=== PATIENT | male | born 1995 ===

== ENCOUNTER 2020-12-31 16:49 | Emergency (ER) | payer MEDICAID, SELFPAY ==
[2020-12-31 17:47] VITALS: BP 149/84; PULSE 70; RESP 18; TEMP 36.9; O2SAT 99; BMI 31.9
--- NOTE | 2020-12-31 19:14 | ED.NAVMDI ---
HPI - Nausea/Vomiting/Diarrhea General Chief complaint: Nausea/Vomiting/Diarrhea Stated complaint: Vomiting Time Seen by Provider: 12/31/20 18:59 History of Present Illness HPI Narrative: Patient is 25-year-old male presents today with having nausea vomiting diarrhea. Positive generalized malaise. Symptoms been ongoing for approximately 1 week. Patient denies any recent travel. Receive his coronavirus vaccine. No cough and no congestion or upper respiratory symptoms. No change in smell or taste. Patient's diarrhea is yellow in color there is no blood. Denies any recent antibiotics. No recent camping. Nausea vomiting mostly food. Patient from home. No abdominal surgery in the past. Minimal abdominal pain as diffuse more in the upper abdomen. Related Data Previous Rx's Medication Instructions Recorded ondansetron 4 mg disintegrating 4 mg PO TID PRN 5 Days #10 tab 12/31/20 tablet Allergies Allergy/AdvReac Type Severity Reaction Status Date / Time No Known Allergies Allergy Unverified 10/29/19 16:37 Review of Systems Review of Systems: Positive nausea Positive diarrhea Positive vomiting No cough and congestion upper respiratory symptoms Yes all other systems are reviewed and are negative [facility] Past Medical History Attestation statement: The following information was validated with the patient. Social History Social History Advance Directives: No Advance Directives Information Provided: Yes Physical Exam Vital Signs: Vital Signs: Last Vital Signs Temp 98.4 F 12/31/20 17:47 Pulse 70 12/31/20 17:47 Resp 18 12/31/20 17:47 BP 149/84 H 12/31/20 17:47 Pulse Ox 99 12/31/20 17:47 Body Mass Index 31.9 Appearance: Alert. Oriented X3. No acute distress. Eyes: Pupils equal, round and reactive to light. ENT: Pharynx normal. Neck: Normal inspection. Neck supple. No lymph nodes noted. No crepitus CVS: Normal heart rate and rhythm. Pulses normal. Normal S1 and S2 Respiratory: No respiratory distress. Breath sounds normal. No Wheezing. No rales Abdomen: Soft and nontender. No rigidity. No distention. good BS x4 Skin: Skin warm and dry. Normal skin color. Normal skin turgor. Extremities: No lower extremity edema. Neurovascular intact to all extremities. No Lacerations. No Rash Neuro: Oriented X 3. No motor deficit. No sensory deficit. Moving all extermities. No slurred speech MDM - Nausea/Vomiting/Diarrhea MDM Narrative Medical decision making narrative: Patient well appearing no acute distress. Tolerated p.o. in the emergency department after IV fluids. Will give Zofran for nausea. Repeat exam is soft nontender. Patient in stable condition with discharge home Medical Records Attestation: I reviewed the patient's medical records. Lab Data Attestation: I reviewed the patient's lab results. Result diagrams: 12/31/20 19:20 12/31/20 19:20 Labs: Lab Results 12/31/20 12/31/20 Range/Units 19:20 19:20 WBC 7.3 (4.8-10.8) X10*3/uL RBC 5.63 (4.60-5.80) X10*6/uL Hgb 16.7 (14.0-18.0) g/dl Hct 48.2 (42.0-52.0) % MCV 85.6 (80.0-98.0) fL MCH 29.7 (27.0-33.0) pg MCHC 34.6 (31.0-36.0) g/dl RDW 12.6 (11.0-16.0) % Plt Count 322 (160-400) X10*3/uL MPV 9.8 (9.4-12.4) fL Immature Gran % (Auto) 0.1 (0.0-0.4) % Neut % (Auto) 72.7 (45-73) % Lymph % (Auto) 19.5 L (20-40) % [place] % (Auto) 7.2 (2-11) % Eos % (Auto) 0.1 (0-4) % Baso % (Auto) 0.4 (0-2) % Lymph # (Auto) 1.4 (1.2-4.9) X10*3/uL [place] # (Auto) 0.5 (0.1-1.2) X10*3/uL Eos # (Auto) 0.0 (0.0-0.4) X10*3/uL Baso # (Auto) 0.0 (0.0-0.2) X10*3/uL Abs Immat Gran (auto) 0.01 (0.00-0.03) X10*3/uL Absolute Neuts (auto) 5.3 (2.0-8.3) x10*3/uL Absolute Nucleated RBC 0.000 (0.0-0.012) X10*3/uL Nucleated RBC % (auto) 0.0 (0.0-0.2) /100WBC Sodium 142 (135-145) mmol/L Potassium 3.6 (3.3-5.1) mmol/L Chloride 105 (96-108) mmol/L Carbon Dioxide 27 (22-29) mmol/L Anion Gap 14 (12-20) BUN 6 L (9-16) mg/dL Creatinine 0.83 (0.5-1.4) mg/dL Estim Creat Clear Calc 154.9 Estimated GFR > 60 Random Glucose 91 (60-115) mg/dL Calcium 10.0 (8.4-10.2) mg/dL Total Bilirubin 0.9 (0.0-1.0) mg/dL Direct Bilirubin 0.4 (0.0-0.5) mg/dL AST 21 (5-37) U/L ALT 26 (0-40) U/L Alkaline Phosphatase 97 (39-117) U/L Total Protein 8.2 H (6.5-8.0) g/dL Albumin 5.0 (3.5-5.0) g/dL Lipase 12 (8-78) U/L Discharge Plan Discharge Clinical Impression: Gastroenteritis Patient Disposition: Home, Self-Care Instructions: Acute Nausea and Vomiting (ED), Acute Diarrhea (ED) Prescriptions: New ondansetron 4 mg tablet,disintegrating 4 mg PO TID PRN (Reason: nausea and vomiting) 5 Days Qty: 10 RF: 0 Referrals: [facility] [Primary Care Provider] - 2 days
[2020-12-31 19:23] LABS: MANUAL DIFF FLAG NO
[2020-12-31 19:24] LABS: Basophils Percent Auto 0.4 % (0-2); Eosinophils Percent Auto 0.1 % (0-4); Hematocrit 48.2 % (42.0-52.0); Hemoglobin 16.7 g/dl (14.0-18.0); Imm Gran Abs Auto 0.01 X10*3/uL (0.00-0.03); Imm Gran Pct Auto 0.1 % (0.0-0.4); Lymphocytes Absolute Auto 1.4 X10*3/uL (1.2-4.9); Lymphocytes Percent Auto 19.5 % (20-40); Mean Corpuscular HGB Conc 34.6 g/dl (31.0-36.0); Mean Corpuscular Hemoglobin 29.7 pg (27.0-33.0); Mean Corpuscular Volume 85.6 fL (80.0-98.0); Mean Platelet Volume 9.8 fL (9.4-12.4); Monocytes Absolute Auto 0.5 X10*3/uL (0.1-1.2); Monocytes Percent Auto 7.2 % (2-11); Neutrophils Absolute Auto 5.3 x10*3/uL (2.0-8.3); Neutrophils Percent Auto 72.7 % (45-73); Platelet Count 322 X10*3/uL (160-400); Red Blood Count 5.63 X10*6/uL (4.60-5.80); Red Cell Distribution Width 12.6 % (11.0-16.0); White Blood Count 7.3 X10*3/uL (4.8-10.8)
[2020-12-31 19:41] LABS: Alanine Aminotransferase 26 U/L (0-40); Alkaline Phosphatase 97 U/L (39-117); Anion Gap 14 (12-20); Aspartate Amino Transferase 21 U/L (5-37); Bilirubin Direct 0.4 mg/dL (0.0-0.5); Bilirubin Total 0.9 mg/dL (0.0-1.0); Blood Urea Nitrogen 6 mg/dL (9-16); Carbon Dioxide 27 mmol/L (22-29); Chloride 105 mmol/L (96-108); Creatinine Clr Calc Pharmacy 154.9; Estimated Glomerular Filt Rate > 60; Glucose Random 91 mg/dL (60-115); Lipase 12 U/L (8-78); Potassium 3.6 mmol/L (3.3-5.1); Sodium 142 mmol/L (135-145); Total Protein 8.2 g/dL (6.5-8.0)
[2020-12-31] MEDS: ondansetron HCL 4 MG/2 ML VIAL IVPUSH (19:58)
[2020-12-31] MEDS: 0.9 % Sodium Chloride 1,000 ML 999 ML IV (19:58)
[2020-12-31 21:29] LABS: Appearance Urine CLEAR; Color Urine YELLOW; Glucose Urine UA NEG (NEG); Leukocyte Esterase Urine NEG (NEG); Nitrite Urine NEG (NEG); Specific Gravity - Urine 1.015 (1.005-1.025); Urine Blood NEG (NEG); Urine Ketones >=80 MG/DL (NEG); Urine Protein NEG (NEG-TRACE)
== END 2020-12-31 21:32 | disposition home or self-care (01) ==
PROVIDERS: Emergency Provider Emergency Medicine Emergency Medical Services
DX: K52.9 Noninfective gastroenteritis and colitis, unspecified (principal)
CPT/HCPCS: 36415; 80048; 80076; 81003; 83690; 85025; 96361; 96374; 99284; J2405

== ENCOUNTER 2022-10-06 19:51 | Observation (INO) | payer MEDICAID, SELFPAY ==
--- NOTE | 2022-10-06 | ECG_ITS ---
Test Reason : ELEVATED TROPONIN Blood Pressure : / mmHG Vent. Rate : 073 BPM Atrial Rate : 073 BPM P-R Int : 130 ms QRS Dur : 114 ms QT Int : 388 ms P-R-T Axes : 046 037 013 degrees QTc Int : 427 ms Normal sinus rhythm Incomplete right bundle branch block Borderline ECG When compared with ECG of 06-OCT-2022 20:23, No significant change was found Referred By: Tea Abel Electronically Signed By:OFELIA CHRISTINA
--- NOTE | ~2022-10-06 | XR_ITS ---
EXAMINATION: XR CHEST CLINICAL INFORMATION: Status post CPR. COMPARISON: None available. TECHNIQUE: Frontal view of the chest was obtained. FINDINGS: Normal appearance of the cardiomediastinal silhouette. No focal airspace opacity, pleural effusion or pneumothorax. No displaced osseous fractures. XR/XR chest 1V IMPRESSION: No acute cardiopulmonary findings. No displaced osseous fractures.
[2022-10-06 20:11] VITALS: BP 133/92; PULSE 101; RESP 18; TEMP 36.9; O2SAT 98; BMI 28.1
--- NOTE | 2022-10-06 20:11 | ED.SYNCOPE ---
HPI - Syncope General Chief Complaint: Syncope Stated Complaint: syncope, nausea Time Seen by Provider: 10/06/22 21:58 Source: patient Mode of arrival: ambulatory Limitations: no limitations History of Present Illness HPI narrative: Patient comes to the emergency room accompanied by his significant other. Today, patient states that he was smoking marijuana and swallow a tablet of what he thought to be Percocet. Patient states he did because appear pressure, denies SI or HI. Patient states that he accidentally overdosed. Patient's friend who was at his side , noted that the patient was unresponsive, threw the patient on the floor, started doing chest compressions and [id number] respirations. Patient remembers waking up very groggy, he was able to walk himself to a bathtub and his friend threw cold water on him. Patient states he has very minimal chest discomfort from the chest compressions Related Data Previous Rx's Medication Instructions Recorded ondansetron 4 mg disintegrating 4 mg PO TID PRN nausea and 12/31/20 tablet vomiting 5 days #10 tabs Allergies Allergy/AdvReac Type Severity Reaction Status Date / Time No Known Allergies Allergy Verified 10/06/22 20:18 Review of Systems Review of Systems: Constitutional : No Weight loss, No Fever, No Chills, No Night Sweats, No Fatigue, No Malaise ENT/Mouth : No Hearing loss, No Ear Pain, No Nasal Congestion, No Sinus Pain, No Hoarseness, No sore throat, No Rhinorrhea, No Swallowing Difficulty Eyes: No Eye Pain, No Swelling, No Redness, No Foreign Body, No Discharge, No Vision Changes Cardiovascular : No Chest Pain, No SOB, No Dyspnea on Exertion, No Orthopnea, No Edema, No Palpitations Respiratory : No Cough, No Sputum, No Wheezing, No Smoke Exposure, No Dyspnea Gastrointestinal : No Nausea, No Vomiting, No Diarrhea, No Constipation, No abdominal Pain, No Hematochezia, No Melena Genitourinary : no irregular bleeding, No Dysuria, No Urinary Frequency, No Hematuria, No Urinary Incontinence, No Urgency, No Flank Pain, No Urinary Flow Changes, No Hesitancy Musculoskeletal : No joint pain, No Myalgias, No Joint Swelling Skin : No Skin Lesions, No rash Neuro : No Weakness, No Numbness, No Paresthesias, No Loss of Consciousness, No Dizziness, No Headache Psych : No Anxiety/Panic, No Depression, No SI/HI/AH/VH, admits to using opiates and synthetic marijuana Heme/Lymph: No Bruising, No Bleeding,No Lymphadenopathy Endocrine : No Polyuria, No Polydipsia, No Temperature Intolerance PMF Past Medical History Medical History (Updated 10/06/22 @ 23:53 by Tea Abel MD) Polysubstance abuse Social History Social History Alcohol intake: never Smoked in Last 30 Days: No Use of substances other than those prescribed or required for medical reasons: Yes Substance Use Type: Marijuana and Opiates Advance Directives: No Advance Directives Information Provided: Yes Physical Exam Vital Signs: Vital Signs: Last Vital Signs Temp 98.5 F 10/06/22 20:11 Pulse 101 H 10/06/22 20:11 Resp 18 10/06/22 20:11 BP 133/92 H 10/06/22 20:11 Pulse Ox 98 10/06/22 20:11 O2 Del Method Room Air 10/06/22 20:11 BMI result Body Mass Index 28.1 Const: Other: Appearance: Alert. Oriented X3. No acute distress. Eyes: Pupils equal, round and reactive to light. ENT: Pharynx normal. Neck: Normal inspection. Neck supple. No lymph nodes noted. No crepitus CVS: Normal heart rate and rhythm. Pulses normal. Normal S1 and S2 Respiratory: No respiratory distress. Breath sounds normal. No Wheezing. No rales Abdomen: Soft and nontender. No rigidity. No distention. Skin: Skin warm and dry. Normal skin color. Normal skin turgor. Extremities: No lower extremity edema. No Lacerations. No Rash Neuro: Oriented X 3. No motor deficit. No sensory deficit. Moving all extremities. No slurred speech. CN 2 through 12 grossly intact Psych: calm, cooperative, normal affect Course Course Course Narrative: This is an RME: Additional HPI, ROS, PE not included below will be deferred to primary provider. Patient is a 27-year-old male who presents emergency department for evaluation after a syncopal episode. He states that he was smoking marijuana, began feeling really hot, and reportedly syncopized per his friend. The next thing patient recalls his friend was picking him up from the floor, reportedly the friend assisted him to lay on the floor as he thought he may have been choking? He is having nausea, diffuse headache, dizziness. Patient later admits to his friend pressuring him into taking a Percocet, reportedly by mouth Plan: labs, EKG, GALICIA Medical Decision Making Medical Decision Making [facility] Narrative: -patient likely accidentally overdose with narcotics, urine tested positive for fentanyl and THC -chest x-ray pending -troponin 1. Was elevated 35.4 , likely secondary to CPR, troponin 2. Pending at 23:30 -at this time, 22:30, patient is asymptomatic. Awake and alert, oxygen saturation 98% on room air -troponin 2. Is 100.2 which is more than double. I discussed the patient in lab findings with Dr. Finney, patient will be admitted under observation status, troponin to be repeated in the morning. Patient was given full-dose aspirin -patient remains chest pain-free -I discussed the patient with Dr. Howard, patient being admitted under observation Differential Diagnosis Differential Diagnoses: The differential diagnosis associated with the presentation includes (Coronary spasm, ACS, STEMI, NSTEMI) Admission/Observation Consideration of admission/observation: Escalation of care including admission/observation considered Consult Healthcare Provider Management of the patient was discussed with: Hospitalist and Agricultural Education Instructor Lab Data [facility] Lab Attestation statement: I reviewed the patient's lab results. 10/06/22 20:33 10/06/22 20:33 Labs: Lab Results 10/06/22 10/06/22 10/06/22 Range/Units 20:33 20:33 20:33 WBC 9.2 (4.8-10.8) X10*3/uL RBC 5.53 (4.60-5.80) X10*6/uL Hgb 16.0 (14.0-18.0) g/dl Hct 47.4 (42.0-52.0) % MCV 85.7 (80.0-98.0) fL MCH 28.9 (27.0-33.0) pg MCHC 33.8 (31.0-36.0) g/dl RDW 12.1 (11.0-16.0) % Plt Count 329 (160-400) X10*3/uL MPV 9.8 (9.4-12.4) fL Immature Gran % (Auto) 0.2 (0.0-0.4) % Neut % (Auto) 77.3 H (45-73) % Lymph % (Auto) 13.9 L (20-40) % [place] % (Auto) 8.1 (2-11) % Eos % (Auto) 0.1 (0-4) % Baso % (Auto) 0.4 (0-2) % Lymph # (Auto) 1.3 (1.2-4.9) X10*3/uL [place] # (Auto) 0.8 (0.1-1.2) X10*3/uL Eos # (Auto) 0.0 (0.0-0.4) X10*3/uL Baso # (Auto) 0.0 (0.0-0.2) X10*3/uL Abs Immat Gran (auto) 0.02 (0.00-0.03) X10*3/uL Absolute Neuts (auto) 7.1 (2.0-8.3) x10*3/uL Absolute Nucleated RBC 0.000 (0.0-0.012) X10*3/uL Nucleated RBC % (auto) 0.0 (0.0-0.2) /100WBC Sodium 143 (135-145) mmol/L Potassium 3.4 (3.3-5.1) mmol/L Chloride 103 (96-108) mmol/L Carbon Dioxide 29 (22-29) mmol/L Anion Gap 14 (12-20) BUN 8 L (9-16) mg/dL Creatinine 1.03 (0.5-1.4) mg/dL Estim Creat Clear Calc 115.6 Estimated GFR > 60 Random Glucose 137 H (60-115) mg/dL Calcium 9.9 (8.4-10.2) mg/dL Total Bilirubin 0.6 (0.0-1.0) mg/dL AST 22 (5-37) U/L ALT 13 (0-40) U/L Alkaline Phosphatase 95 (39-117) U/L Troponin I High Sens 35.4 H (<3.5-35.0) ng/L Total Protein 8.2 H (6.5-8.0) g/dL Albumin 5.0 (3.5-5.0) g/dL Urine Opiates Screen (Not Detect) Urine Fentanyl Screen (Not Detect) Ur Barbiturates Screen (Not Detect) Ur Phencyclidine Scrn (Not Detect) Ur Amphetamines Screen (Not Detect) U Benzodiazepines Scrn (Not Detect) Urine Cocaine Screen (Not Detect) U Marijuana (THC) Screen (Not Detect) 10/06/22 10/06/22 Range/Units 20:33 22:50 WBC (4.8-10.8) X10*3/uL RBC (4.60-5.80) X10*6/uL Hgb (14.0-18.0) g/dl Hct (42.0-52.0) % MCV (80.0-98.0) fL MCH (27.0-33.0) pg MCHC (31.0-36.0) g/dl RDW (11.0-16.0) % Plt Count (160-400) X10*3/uL MPV (9.4-12.4) fL Immature Gran % (Auto) (0.0-0.4) % Neut % (Auto) (45-73) % Lymph % (Auto) (20-40) % [place] % (Auto) (2-11) % Eos % (Auto) (0-4) % Baso % (Auto) (0-2) % Lymph # (Auto) (1.2-4.9) X10*3/uL [place] # (Auto) (0.1-1.2) X10*3/uL Eos # (Auto) (0.0-0.4) X10*3/uL Baso # (Auto) (0.0-0.2) X10*3/uL Abs Immat Gran (auto) (0.00-0.03) X10*3/uL Absolute Neuts (auto) (2.0-8.3) x10*3/uL Absolute Nucleated RBC (0.0-0.012) X10*3/uL Nucleated RBC % (auto) (0.0-0.2) /100WBC Sodium (135-145) mmol/L Potassium (3.3-5.1) mmol/L Chloride (96-108) mmol/L Carbon Dioxide (22-29) mmol/L Anion Gap (12-20) BUN (9-16) mg/dL Creatinine (0.5-1.4) mg/dL Estim Creat Clear Calc Estimated GFR Random Glucose (60-115) mg/dL Calcium (8.4-10.2) mg/dL Total Bilirubin (0.0-1.0) mg/dL AST (5-37) U/L ALT (0-40) U/L Alkaline Phosphatase (39-117) U/L Troponin I High Sens 100.2 H* D (<3.5-35.0) ng/L Total Protein (6.5-8.0) g/dL Albumin (3.5-5.0) g/dL Urine Opiates Screen Not Detected (Not Detect) Urine Fentanyl Screen POSITIVE H (Not Detect) Ur Barbiturates Screen Not Detected (Not Detect) Ur Phencyclidine Scrn Not Detected (Not Detect) Ur Amphetamines Screen Not Detected (Not Detect) U Benzodiazepines Scrn Not Detected (Not Detect) Urine Cocaine Screen Not Detected (Not Detect) U Marijuana (THC) Screen POSITIVE H (Not Detect) Independent Interpretation I performed an independent interpretation of an: EKG (EKG 1. Right interpretation: Normal sinus rhythm, heart rate 91, [address] segment depression in lead 3, no reciprocal changes, right bundle-branch block, QTC 457. EKG 2.: Normal sinus rhythm, incomplete right bundle branch block, nonspecific T-wave inversions in lead 3, QTC 427 ) Radiology Impression Discussion of test interpretation with radiology: I have reviewed the radiologist's reading. (Normal appearance of the cardiomediastinal silhouette. No focal airspace opacity, pleural effusion or pneumothorax. No displaced osseous fractures. IMPRESSION: No acute cardiopulmonary findings. No displaced osseous fractures.) Independent Historian Clinical information obtained from an independent historian. History obtained from or confirmed by: Spouse External Record Review External record reviewed: Prior outpatient labs Chronic Conditions Patient?s care impacted by: Other (Polysubstance abuse) Critical Care Time Critical Care Time Critical Care Time: Yes Total Critical Care Time: 60 Attestation: I have personally provided critical care time. Time includes review of lab data, radiology results, discussion with consultants, and monitoring for potential decompensation. Intervention performed as documented. Discharge Plan Discharge Clinical Impression: Elevated troponin, Polysubstance abuse Patient Disposition: Admitted as Observation Prescriptions: No Action ondansetron 4 mg tablet,disintegrating 4 mg PO TID PRN (Reason: nausea and vomiting) 5 Days Qty: 10 0RF
--- NOTE | 2022-10-06 20:17 | ECG_ITS ---
Test Reason : SYNCOPE Blood Pressure : / mmHG Vent. Rate : 091 BPM Atrial Rate : 091 BPM P-R Int : 130 ms QRS Dur : 116 ms QT Int : 372 ms P-R-T Axes : 062 002 027 degrees QTc Int : 457 ms Normal sinus rhythm Incomplete right bundle branch block Borderline ECG No previous ECGs available Referred By: Shana Webber Electronically Signed By:OFELIA CHRISTINA
[2022-10-06 20:38] LABS: MANUAL DIFF FLAG NO
[2022-10-06 20:51] LABS: Basophils Percent Auto 0.4 % (0-2); Eosinophils Percent Auto 0.1 % (0-4); Hematocrit 47.4 % (42.0-52.0); Imm Gran Abs Auto 0.02 X10*3/uL (0.00-0.03); Imm Gran Pct Auto 0.2 % (0.0-0.4); Lymphocytes Absolute Auto 1.3 X10*3/uL (1.2-4.9); Lymphocytes Percent Auto 13.9 % (20-40); Mean Corpuscular HGB Conc 33.8 g/dl (31.0-36.0); Mean Corpuscular Hemoglobin 28.9 pg (27.0-33.0); Mean Corpuscular Volume 85.7 fL (80.0-98.0); Mean Platelet Volume 9.8 fL (9.4-12.4); Monocytes Absolute Auto 0.8 X10*3/uL (0.1-1.2); Monocytes Percent Auto 8.1 % (2-11); Neutrophils Absolute Auto 7.1 x10*3/uL (2.0-8.3); Neutrophils Percent Auto 77.3 % (45-73); Platelet Count 329 X10*3/uL (160-400); Red Blood Count 5.53 X10*6/uL (4.60-5.80); Red Cell Distribution Width 12.1 % (11.0-16.0); White Blood Count 9.2 X10*3/uL (4.8-10.8)
[2022-10-06 20:52] LABS: Alanine Aminotransferase 13 U/L (0-40); Alkaline Phosphatase 95 U/L (39-117); Anion Gap 14 (12-20); Aspartate Amino Transferase 22 U/L (5-37); Bilirubin Total 0.6 mg/dL (0.0-1.0); Blood Urea Nitrogen 8 mg/dL (9-16); Calcium 9.9 mg/dL (8.4-10.2); Carbon Dioxide 29 mmol/L (22-29); Chloride 103 mmol/L (96-108); Creatinine Clr Calc Pharmacy 115.6; Estimated Glomerular Filt Rate > 60; Glucose Random 137 mg/dL (60-115); Potassium 3.4 mmol/L (3.3-5.1); Sodium 143 mmol/L (135-145); Total Protein 8.2 g/dL (6.5-8.0)
[2022-10-06 20:53] LABS: Amphetamine Screen Urine Not Detected (Not Detect); Barbiturates, Urine Not Detected (Not Detect); Benzodiazepines Screen Urine Not Detected (Not Detect); Cannabinoid Screen Urine POSITIVE (Not Detect); Cocaine Screen Urine Not Detected (Not Detect); Fentanyl, urine POSITIVE (Not Detect); Opiate Screen Urine Not Detected (Not Detect); Phencyclidine Screen Urine Not Detected (Not Detect)
[2022-10-06 20:59] LABS: Troponin-I High Sensitivity 35.4 ng/L (<3.5-35.0)
[2022-10-06 22:24] VITALS: PULSE 72
--- NOTE | 2022-10-06 22:28 | PC.NURSE ---
Pt a&ox3, Pt reports headache 5/10 pain. Pt reports that he vomited in the waiting room, and is expiriencing heartburn. Denies N/V/D sima. Pt reports smoking marijuana and taking a percocet around the time of syncopal episode. Pt states he tried to use cold water min the bathtub after passing out. Pt resting quietly, with no apparent distress at this time.
[2022-10-06 23:16] LABS: Troponin-I High Sensitivity 100.2 ng/L (<3.5-35.0)
--- NOTE | 2022-10-06 23:50 | PM.IMHP ---
History of Present Illness Date of Service: 10/06/22 Chief Complaint: Overdose 27-year-old male with no significant past medical history is brought into the hospital after having an overdose episode. Patient is alert oriented x3. He tells me that he accidentally overdose on fentanyl. Patient's friend who was at his side noted that patient became unresponsive, through the patient on the floor and started doing chest compressions and mass to mouth resuscitation. He woke up feeling very groggy, was able to walk himself to the back to open his friend through cold water on him. He then came to the ED for further evaluation. He reports a S some heartburn in the throat but otherwise has no chest pain, no shortness of breath, no abdominal pain nausea or vomiting, no diarrhea constipation, no urinary symptoms, no headache or change in vision, no weakness numbness or tingling. On arrival to the ED patient hemodynamically stable Labs are significant for WBC count of 9.2, labs otherwise unremarkable except for troponin of 35 increased 100.2 Incomplete right bundle branch block, otherwise no significant abnormality - this was discussed with Cardiology, given the increase in troponin patient will be admitted for observation Review of Systems Review of Systems: Yes all other systems are reviewed and are negative [facility] Medical History Polysubstance abuse Surgical History No pertinent past surgical history Social History Alcohol intake: never Patient Tobacco Use Status: Refuse Tobacco use screen Smoked in Last 30 Days: No Use of substances other than those prescribed or required for medical reasons: Yes Substance Use Type: Marijuana and Opiates Advance Directives: No Advance Directives Information Provided: Yes Nutrition Risks: No Nutritional Risk Meds Allergies Allergy/AdvReac Type Severity Reaction Status Date / Time No Known Allergies Allergy Verified 10/06/22 20:18 Physical Exam Vital Signs and Narrative: Vital Signs: Last Vital Signs Temp 98.5 F 10/06/22 20:11 Pulse 101 H 10/06/22 20:11 Resp 18 10/06/22 20:11 BP 133/92 H 10/06/22 20:11 Pulse Ox 98 10/06/22 20:11 O2 Del Method Room Air 10/06/22 20:11 BMI result Body Mass Index 28.1 Const: General: cooperative and no acute distress Orientation/consciousness: patient oriented x3 Eyes: General: appearance normal, both eyes and all related structures Pupils: Equal, round and reactive pupils present Resp: Effort & Inspection: normal respiratory effort Auscultation: clear to auscultation bilaterally Cardio: Rate: regular rate Rhythm: regular rhythm GI: Palpation (GI): Soft to palpation Auscultation: normal bowel sounds Skin: General skin exam: no rashes or lesions noted Neuro: General: patient oriented x3 Cranial nerves: Yes Equal, round and reactive pupils present Cognition (Neuro): normal cognition Extrem: General: Yes normal to inspection and Yes no pedal edema Results Labs 10/06/22 20:33 10/06/22 20:33 Labs: Laboratory Results - last 24 hr 10/06/22 10/06/22 10/06/22 20:33 20:33 20:33 MCV 85.7 MCH 28.9 MCHC 33.8 RDW 12.1 Plt Count 329 MPV 9.8 Immature Gran % (Auto) 0.2 Neut % (Auto) 77.3 H Lymph % (Auto) 13.9 L [place] % (Auto) 8.1 Eos % (Auto) 0.1 Baso % (Auto) 0.4 Lymph # (Auto) 1.3 [place] # (Auto) 0.8 Eos # (Auto) 0.0 Baso # (Auto) 0.0 Abs Immat Gran (auto) 0.02 Absolute Neuts (auto) 7.1 Absolute Nucleated RBC 0.000 Nucleated RBC % (auto) 0.0 Anion Gap 14 Estim Creat Clear Calc 115.6 Estimated GFR > 60 Random Glucose 137 H Calcium 9.9 Total Bilirubin 0.6 AST 22 ALT 13 Alkaline Phosphatase 95 Total Protein 8.2 H Albumin 5.0 Urine Opiates Screen Not Detected Urine Fentanyl Screen POSITIVE H Ur Barbiturates Screen Not Detected Ur Phencyclidine Scrn Not Detected Ur Amphetamines Screen Not Detected U Benzodiazepines Scrn Not Detected Urine Cocaine Screen Not Detected U Marijuana (THC) Screen POSITIVE H Imaging Radiologist's Impressions: Impressions Chest X-Ray 10/06/22 22:37 IMPRESSION: No acute cardiopulmonary findings. No displaced osseous fractures. Assessment and Plan (1) Elevated troponin: Status: Acute (2) Opioid overdose: Status: Acute Plan 27-year-old male with no significant past medical history comes into the hospital after overdosing on fentanyl accidentally, found to have elevated troponin # elevated troponin - likely from this chest compressions/CPR attempted - this was discussed with Cardiology, patient will be admitted for observation. - patient will be admitted to telemetry, repeat troponin in 4 hours, if decreased patient can be discharged # opioid overdose - per patient, accidental -addiction medicine consult Time Spent With Patient Time: Total time managing care of this patient today ____ minutes. Quality Stroke Does the patient have a stroke diagnosis?: No VTE Prior VTE?: No VTE Risk Level:: Medical - low VTE Device Contraindication: Treatment Not Indicated VTE Drug Contraindication: Treatment Not Indicated
[2022-10-07] VITALS: BP 138/71; PULSE 69; RESP 13; TEMP 37.4; O2SAT 98
--- NOTE | 2022-10-07 | ECG_ITS ---
Test Reason : Abnormal Initial Tracing Blood Pressure : / mmHG Vent. Rate : 061 BPM Atrial Rate : 061 BPM P-R Int : 136 ms QRS Dur : 116 ms QT Int : 424 ms P-R-T Axes : 044 012 009 degrees QTc Int : 426 ms Normal sinus rhythm Incomplete right bundle branch block Borderline ECG When compared with ECG of 06-OCT-2022 23:29, No significant change was found Referred By: Ishmael Urbano Electronically Signed By:OFELIA CHRISTINA
[2022-10-07] MEDS: Aspirin Enteric Coated 325 MG TABLET.DR PO (00:24)
[2022-10-07] MEDS: 0.9 % Sodium Chloride Flush 3 ML SYRINGE IVFLUSH ×2 (00:25→07:17)
[2022-10-07 01:48] VITALS: O2SAT 98
[2022-10-07 03:30] LABS: Troponin-I High Sensitivity 60.6 ng/L (<3.5-35.0)
[2022-10-07 05:25] VITALS: BP 113/63; PULSE 60; RESP 17; TEMP 37; O2SAT 98
[2022-10-07 06:04] LABS: Alanine Aminotransferase 12 U/L (0-40); Albumin Level 4.4 g/dL (3.5-5.0); Alkaline Phosphatase 78 U/L (39-117); Anion Gap 13 (12-20); Aspartate Amino Transferase 19 U/L (5-37); Bilirubin Total 0.6 mg/dL (0.0-1.0); Blood Urea Nitrogen 6 mg/dL (9-16); Calcium 9.6 mg/dL (8.4-10.2); Carbon Dioxide 28 mmol/L (22-29); Chloride 105 mmol/L (96-108); Creatinine Clr Calc Pharmacy 154.6; Estimated Glomerular Filt Rate > 60; Glucose Random 92 mg/dL (60-115); Potassium 3.6 mmol/L (3.3-5.1); Sodium 142 mmol/L (135-145); Total Protein 7.2 g/dL (6.5-8.0)
[2022-10-07 06:08] LABS: Troponin-I High Sensitivity 42.2 ng/L (<3.5-35.0)
--- NOTE | 2022-10-07 06:46 | MHC.EDTECH ---
PATIENT IS CHANGING OVER TO HOSPITAL ATTIRE ALL ITEMS ARE LOCKED IN THE BEHAVIORAL POD LOCKER 9
--- NOTE | 2022-10-07 07:03 | PHA.MEDREC ---
Pharmacy Consult ? Medication Reconciliation Pharmacy has completed the medication reconciliation.
--- NOTE | 2022-10-07 07:16 | PC.NURSE ---
Alert and oriented, denies pain or discomfort. oob ambulating in room. Changed into hospital attire.
[2022-10-07 08:58] VITALS: BP 134/73; PULSE 83; RESP 12; TEMP 37.4; O2SAT 99
--- NOTE | 2022-10-07 09:01 | HO.SUDE ---
Addendum entered by Casandra Amador RN 10/07/22 09:30: Pt reports age of first use 17-18 years old, pt states period of recovery 3 years, while living in [place]. Pt states recurrence, approximately 2 years ago. Pt denies increased cravings. Original Note: This communications writer met with patient after addiction consult received. Pt admitted for elevated troponin, opiate overdose. Pt was resting in bed, alert, oriented. 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 Pt reports, became unconscious, friend provided CPR and splashed pt with cold water until alert. Pt reports after the overdose, presented to the ED. Pt states uses pressed pills 1-2 x's per week, pt reports no other substances used. Pt states never uses alone, uses with friend. Pt reports no hx of overdose. Pt states goal of abstinence, motivation to stop is patients family. Pt states occasionally experiences hot, cold sweats on the days not using pressed pills. Pt reports has cravings to use pressed pills, only when around it. Pt denies cravings to use pressed pills when not around it. Pt states interested in Suboxone medication for cravings. Harm reduction, medications for opiate use reviewed, recovery supports reviewed. Pt has PCP at [facility], discussed pt accessing [facility]. Pt interested in starting Suboxone. Pt agreeable to take home narcan, reviewed how to use narcan. Pt verbalized understanding. Pt encouraged to reach out to Addiction/Recovery team with any questions and concerns, contact info provided. Pt reports no other questions at this time.
[2022-10-07] MEDS: Buprenorphine/Naloxone 2/0.5mg FILM 1 FILM SUBLINGUAL (09:49)
--- NOTE | 2022-10-07 10:55 | PM.DS ---
DS: Providers Provider Date of Service: 10/07/22 Date of admission: 10/06/22 23:48 Date of discharge: 10/07/22 Primary care physician: [facility] Consults: 10/07/22 06:34 Addiction Medicine Routine Consulting Provider: Narinder Boston Reason for consultation: Opioid overdose Has provider been notified: No DS: Diagnosis Discharge Diagnosis (1) Opioid overdose: Status: Acute (2) Elevated troponin: Status: Acute DS: Summary Hospital Course Hospital Course: 27-year-old male with no significant past medical history is brought into the hospital after having an overdose episode.? Patient is alert oriented x3.? He tells me that he accidentally overdose on fentanyl.? Patient's friend who was at his side noted that patient became unresponsive, through the patient on the floor and started doing chest compressions and mass to mouth resuscitation.? He woke up feeling very groggy, was able to walk himself to the back to open his friend through cold water on him.? He then came to the ED for further evaluation. He reports a S some heartburn in the throat but otherwise has no chest pain, no shortness of breath, no abdominal pain nausea or vomiting, no diarrhea constipation, no urinary symptoms, no headache or change in vision, no weakness numbness or tingling.? On arrival to the ED patient hemodynamically stable Labs are significant for WBC count of 9.2, labs otherwise unremarkable except for troponin of 35 increased 100.2 Incomplete right bundle branch block, otherwise no significant abnormality Hospital course Admitted to floor and observed overnight. This a.m. troponin trending downward and EKG unchanged from admission. Discussed dangers of ongoing opiate use with patient and significant other at bedside. Will follow[facility]up with [facility]. Does not admit that this is a problem despite having CPR. Discharge home no new meds Time Spent with Patient Time attestation: Total time managing care of this patient today ____ minutes. Discharge coordination time: Greater than 30 minutes Quality: Safe Use of Opioids Does Pt have an Active Cancer Diagnosis on the Problem List?: No Quality: Stroke Does the patient have a stroke diagnosis?: No Physical Exam Vital Signs: Vital Signs: Last Vital Signs Temp 99.3 F 10/07/22 08:58 Pulse 83 10/07/22 08:58 Resp 12 08/27/23 08:58 BP 134/73 10/07/22 08:58 Pulse Ox 99 10/07/22 08:58 O2 Del Method Room Air 10/07/22 08:58 BMI result Body Mass Index 28.1 Const: Other: Awake alert no acute distress Resp: Other: Clear to auscultation bilaterally no rales rhonchi or wheezes Cardio: Other: No S4; positive S1-S2; no S3 murmurs rubs or gallops GI: Other: Soft nontender nondistended normoactive bowel sounds Neuro: Other: Cranial nerves 2-12 grossly intact as tested. Motor is 5/5 all extremities. Sensation is intact. Cognition appropriate Extrem: Other: No edema bilaterally DS: Data Data Completed and Pending Labs on day of discharge: Laboratory Results - last 24 hr 10/06/22 10/06/22 10/06/22 20:33 20:33 20:33 WBC 9.2 RBC 5.53 Hgb 16.0 Hct 47.4 MCV 85.7 MCH 28.9 MCHC 33.8 RDW 12.1 Plt Count 329 MPV 9.8 Immature Gran % (Auto) 0.2 Neut % (Auto) 77.3 H Lymph % (Auto) 13.9 L [place] % (Auto) 8.1 Eos % (Auto) 0.1 Baso % (Auto) 0.4 Lymph # (Auto) 1.3 [place] # (Auto) 0.8 Eos # (Auto) 0.0 Baso # (Auto) 0.0 Abs Immat Gran (auto) 0.02 Absolute Neuts (auto) 7.1 Absolute Nucleated RBC 0.000 Nucleated RBC % (auto) 0.0 Sodium 143 Potassium 3.4 Chloride 103 Carbon Dioxide 29 Anion Gap 14 BUN 8 L Creatinine 1.03 Estim Creat Clear Calc 115.6 Estimated GFR > 60 Random Glucose 137 H Calcium 9.9 Total Bilirubin 0.6 AST 22 ALT 13 Alkaline Phosphatase 95 Troponin I High Sens 35.4 H Total Protein 8.2 H Albumin 5.0 Urine Opiates Screen Urine Fentanyl Screen Ur Barbiturates Screen Ur Phencyclidine Scrn Ur Amphetamines Screen U Benzodiazepines Scrn Urine Cocaine Screen U Marijuana (THC) Screen 10/06/22 10/06/22 10/07/22 20:33 22:50 02:52 WBC RBC Hgb Hct MCV MCH MCHC RDW Plt Count MPV Immature Gran % (Auto) Neut % (Auto) Lymph % (Auto) [place] % (Auto) Eos % (Auto) Baso % (Auto) Lymph # (Auto) [place] # (Auto) Eos # (Auto) Baso # (Auto) Abs Immat Gran (auto) Absolute Neuts (auto) Absolute Nucleated RBC Nucleated RBC % (auto) Sodium Potassium Chloride Carbon Dioxide Anion Gap BUN Creatinine Estim Creat Clear Calc Estimated GFR Random Glucose Calcium Total Bilirubin AST ALT Alkaline Phosphatase Troponin I High Sens 100.2 H* D 60.6 H Total Protein Albumin Urine Opiates Screen Not Detected Urine Fentanyl Screen POSITIVE H Ur Barbiturates Screen Not Detected Ur Phencyclidine Scrn Not Detected Ur Amphetamines Screen Not Detected U Benzodiazepines Scrn Not Detected Urine Cocaine Screen Not Detected U Marijuana (THC) Screen POSITIVE H 10/07/22 10/07/22 05:24 05:24 WBC RBC Hgb Hct MCV MCH MCHC RDW Plt Count MPV Immature Gran % (Auto) Neut % (Auto) Lymph % (Auto) [place] % (Auto) Eos % (Auto) Baso % (Auto) Lymph # (Auto) [place] # (Auto) Eos # (Auto) Baso # (Auto) Abs Immat Gran (auto) Absolute Neuts (auto) Absolute Nucleated RBC Nucleated RBC % (auto) Sodium 142 Potassium 3.6 Chloride 105 Carbon Dioxide 28 Anion Gap 13 BUN 6 L Creatinine 0.77 Estim Creat Clear Calc 154.6 Estimated GFR > 60 Random Glucose 92 Calcium 9.6 Total Bilirubin 0.6 AST 19 ALT 12 Alkaline Phosphatase 78 Troponin I High Sens 42.2 H Total Protein 7.2 Albumin 4.4 Urine Opiates Screen Urine Fentanyl Screen Ur Barbiturates Screen Ur Phencyclidine Scrn Ur Amphetamines Screen U Benzodiazepines Scrn Urine Cocaine Screen U Marijuana (THC) Screen Discharge Plan Discharge Anticipated Discharge Date/Time: 10/07/22 10:53 Patient Disposition: Home, Self-Care Discharge Diagnosis: Opioid overdose Referrals: [place] [Primary Care Provider] - 1 Week Discharge Medications: No Action No Known Home Meds Discharge Orders: Discharge Order (Routine); Ordered 10/07/22 Ordered By: Ishmael Urbano Diet: Advance to usual diet Activity on Discharge: As tolerated Stand Alone Forms: Patient Portal Discharge page Care Plan Goals: No opioids Health Concerns: Follow-up with [facility] next available appointment Plan of Treatment: Consider treatment if unable to stop Assessment: See discharge summary
--- NOTE | 2022-10-07 11:30 | PC.NURSE ---
Discharge plan reviewed with patient who verbalized understanding, belongings in POD locker 9 returned to patient
--- NOTE | 2022-10-07 11:32 | PM.EVENT ---
Event Note Date of Service: 10/07/22 Event Note: Patient admitted following opioid overdose Met with support assistant Reported history of using illicit percocet on and off since age 19. Recently started to increase use to several days per week interested in MOUD. Reviewed with support assistant Increased risk for overdose Plan: -Suboxone 2mg admin with good effect -will follow up with [facility] outpatient -Bridge rx sent to pharmacy -take home narcan ordered and use reviewed by RN Time Spent With Patient Time: Total time managing care of this patient today ____ minutes.
== END 2022-10-07 11:35 | disposition home or self-care (01) ==
LOC: HO.ED 23:53 → HO.EDOVER 23:55
PROVIDERS: Nurse Practitioner Family; Admitting Provider Internal Medicine; Emergency Provider Emergency Medicine; Visit Provider Hospitalist
DX: T40.411A Poisoning by fentanyl or fentanyl analogs, accidental (unintentional), initial encounter (principal); Y92.9 Unspecified place or not applicable; F19.10 Other psychoactive substance abuse, uncomplicated; R77.8 Other specified abnormalities of plasma proteins
CPT/HCPCS: 36415; 71045; 80053; 80307; 84484; 85025; 93005; 99222; 99285

== ENCOUNTER → 2022-10-06 23:48 | Outpatient (BNV) | payer MEDICAID, SELFPAY | PROVIDERS: Admitting Provider Internal Medicine; Emergency Provider Emergency Medicine; Visit Provider Internal Medicine | DX: T40.2X1A Poisoning by other opioids, accidental (unintentional), initial encounter (principal); R77.8 Other specified abnormalities of plasma proteins | CPT/HCPCS: 99222; 99239 ==

== ENCOUNTER 2023-08-10 20:06 | Emergency (ER) | payer MEDICAID, SELFPAY ==
--- NOTE | ~2023-08-10 | CT_ITS ---
EXAMINATION: CT HEAD WITHOUT CONTRAST CLINICAL INFORMATION: Altered mental status. Overdose. Fall. COMPARISON: None. TECHNIQUE: Multidetector volumetric imaging of the head was performed without intravenous contrast material. This CT examination was performed using dose optimization techniques as appropriate, variously including the following: *Automated exposure control *Adjustment of mA and/or kV according to patient size (this includes techniques or standardized protocols for targeted exams where dose is matched to indication/reason for exam; i.e. extremities or head) *Use of iterative reconstruction technique Dose: 659 mGy-cm FINDINGS: There is no evidence of acute intracranial hemorrhage or territorial infarction. No abnormal mass-effect or midline shift is seen. [place] to white matter differentiation is well preserved. No extra axial fluid collections. The ventricles are normal in size and configuration. There is no abnormal attenuation within the brain parenchyma. The soft tissues and osseous structures are normal. The sinuses and mastoid air cells are clear. CT/CT head/brain wo IV con IMPRESSION: No acute intracranial pathology.
[2023-08-10 20:15] VITALS: BP 133/80; BP 164/00; PULSE 108; PULSE 81; RESP 16; TEMP 36.5; O2SAT 97; O2SAT 99; BMI 31.9
--- NOTE | 2023-08-10 20:17 | MHC.EDTECH ---
Patient BIBA,security called for slip box changer,patient changed into hospital attire,belongings list completed,all belongings placed in [facility] ROOM,patient has cellphone at bedside with 1 airpod.
[2023-08-10 21:21] LABS: MANUAL DIFF FLAG NO
[2023-08-10 21:25] LABS: Basophils Percent Auto 0.9 % (0-2); Eosinophils Percent Auto 0.5 % (0-4); Hemoglobin 15.3 g/dl (14.0-18.0); Imm Gran Abs Auto 0.02 X10*3/uL (0.00-0.03); Imm Gran Pct Auto 0.5 % (0.0-0.4); Lymphocytes Absolute Auto 1.2 X10*3/uL (1.2-4.9); Lymphocytes Percent Auto 27.8 % (20-40); Mean Corpuscular Hemoglobin 29.3 pg (27.0-33.0); Mean Corpuscular Volume 86.2 fL (80.0-98.0); Mean Platelet Volume 10.3 fL (9.4-12.4); Monocytes Absolute Auto 0.4 X10*3/uL (0.1-1.2); Neutrophils Absolute Auto 2.7 x10*3/uL (2.0-8.3); Neutrophils Percent Auto 62.3 % (45-73); Platelet Count 329 X10*3/uL (160-400); Red Blood Count 5.22 X10*6/uL (4.60-5.80); White Blood Count 4.4 X10*3/uL (4.8-10.8)
--- NOTE | 2023-08-10 21:31 | ED_ITS ---
HPI - General Adult General Chief complaint: Overdose Stated complaint: OD on Percocet, narcan administered by family Time Seen by Provider: 08/10/23 20:36 Source: patient and EMS Mode of arrival: EMS Limitations: no limitations History of Present Illness ED Provider: Emiliano CAMPBELL HPI narrative: 28-year-old male history of polysubstance abuse presents with accidental Percocet overdose given Narcan x2 by mother. No head strike or loss of consciousness. Patient reports he is feeling fine he has not suicidal or homicidal. Denies any medical complaints at this time reports this was accidental and not in hopes to harm himself. Denies chest pain, shortness of breath, nausea, vomiting, abdominal pain, headache, vision changes, dizziness and weakness. Related Data Previous Rx's ?Medication ?Instructions ?Recorded buprenorphine 2 mg-naloxone 0.5 mg 1 film sublingual DAILY #12 ea 10/07/22 sublingual film (Suboxone) Allergies Allergy/AdvReac Type Severity Reaction Status Date / Time No Known Allergies Allergy Verified 08/10/23 20:20 Review of Systems 2 Review of Systems: Yes all other systems are reviewed and are negative [facility] Past Medical History Attestation statement: The following information was validated with the patient. Source: old records reviewed and nursing notes reviewed Medical History Polysubstance abuse Polysubstance abuse Surgical History No pertinent past surgical history Social History Social History Alcohol intake: never Patient Tobacco Use Status: Refuse Tobacco use screen Substance Use Type: Marijuana and Opiates Advance Directives: No Do you have a plan to hurt others: No Plan Physical Exam ED Vital Signs: Vital Signs - 24 hr 08/10/23 20:15 08/10/23 21:58 Temperature 97.7 F 98.2 F Pulse Rate 81 70 Respiratory Rate 16 16 Blood Pressure 133/80 127/74 Pulse Oximetry 99 100 Oxygen Delivery Method Room Air Room Air BMI result Body Mass Index 31.9 vss Appearance: Alert.? Oriented X3.? No acute distress.? Head: Normocephalic, atraumatic, no step-offs or deformities Eyes: Pupils equal, round and reactive to light.? ENT: Pharynx normal.? Neck: Normal inspection.? Neck supple.? CVS: Normal heart rate and rhythm.? Pulses normal.? Respiratory: No respiratory distress.? Breath sounds normal.? Abdomen: Soft and nontender.? Skin: Skin warm and dry.? Normal skin color.? Normal skin turgor.? Extremities: No lower extremity edema.? No calf ttp. 5/5 strength to bilateral upper and lower extremities Neuro: Oriented X 3.? No motor deficit.? No sensory deficit. CN 2-12 intact Course Reevaluation(s) Reevaluation #1: CBC unremarkable. Chemistry no acute findings requiring intervention. Salicylates, acetaminophen negative. Ethanol negative. Head CT pending. Patient is not interested in a substance use disorder evaluation he has currently in a program and has been clean for 10 months. He has adequate supports at home. Not suicidal or homicidal. No indication for Section 12 or mandated psych consult. Patient is feeling well and would like to go home. As long as head CT is negative patient can be discharged home. Time: 22:18 Reevaluation #2: Head CT no acute intracranial pathology. Patient feeling well and would like to go home. Patient's mother at the bedside who is agreeable to this. The care team was actually able to speak to patient he does have outpatient resources which he will follow-up with. Educated patient on diagnosis and treatment plan, answered all question, patient verbalizes understanding. At this time patient will be discharged home, advised to return with new or worsening symptoms. Educated on worrisome signs and symptoms and when to return. At this time I feel comfortable discharge home. Time: 22:41 Medications Administered Discontinued Medications Generic Name Dose Route Start Last Admin Trade Name Freq PRN Reason Stop Dose Admin Naloxone HCl 8 mg 08/10/23 21:36 08/10/23 21:56 Naloxone Hcl Nasal Take Home 4 Mg [place] NOSTRILALT 08/10/23 21:37 Not Given ONCE ONE Medical Decision Making Medical Decision Making MDM Narrative: 28-year-old presents falls accidental Percocet overdose given Narcan by family. Not suicidal or homicidal PE benign hx and pe concerning for accidental overdose. Unlikley metabolic derangments, si. Unlikely ICH, stroke, trauma to head, neck, chest , abd or pelvis. Plan- labs, imaging Differential Diagnosis Differential Diagnoses: The differential diagnosis associated with the presentation includes hx and pe concerning for accidental overdose. Unlikley metabolic derangments, si. Unlikely ICH, stroke, trauma to head, neck, chest , abd or pelvis. Admission/Observation Consideration of admission/observation: Escalation of care including admission/observation considered no indication Lab Data MDM Lab Attestation statement: I reviewed the patient's lab results. 08/10/23 21:16 08/10/23 21:16 Labs: Lab Results 08/10/23 Range/Units 21:16 WBC 4.4 L (4.8-10.8) X10*3/uL RBC 5.22 (4.60-5.80) X10*6/uL Hgb 15.3 (14.0-18.0) g/dl Hct 45.0 (42.0-52.0) % MCV 86.2 (80.0-98.0) fL MCH 29.3 (27.0-33.0) pg MCHC 34.0 (31.0-36.0) g/dl RDW 13.0 (11.0-16.0) % Plt Count 329 (160-400) X10*3/uL MPV 10.3 (9.4-12.4) fL Immature Gran % (Auto) 0.5 H (0.0-0.4) % Neut % (Auto) 62.3 (45-73) % Lymph % (Auto) 27.8 (20-40) % [place] % (Auto) 8.0 (2-11) % Eos % (Auto) 0.5 (0-4) % Baso % (Auto) 0.9 (0-2) % Lymph # (Auto) 1.2 (1.2-4.9) X10*3/uL [place] # (Auto) 0.4 (0.1-1.2) X10*3/uL Eos # (Auto) 0.0 (0.0-0.4) X10*3/uL Baso # (Auto) 0.0 (0.0-0.2) X10*3/uL Abs Immat Gran (auto) 0.02 (0.00-0.03) X10*3/uL Absolute Neuts (auto) 2.7 (2.0-8.3) x10*3/uL Absolute Nucleated RBC 0.000 (0.0-0.012) X10*3/uL Nucleated RBC % (auto) 0.0 (0.0-0.2) /100WBC Sodium 145 (135-145) mmol/L Potassium 3.6 (3.3-5.1) mmol/L Chloride 106 (96-108) mmol/L Carbon Dioxide 25 (22-29) mmol/L Anion Gap 18 (12-20) BUN 7 L (9-16) mg/dL Creatinine 0.98 (0.5-1.4) mg/dL Estim Creat Clear Calc 127.8 Estimated GFR > 60 Random Glucose 126 H (60-115) mg/dL Calcium 9.1 (8.4-10.2) mg/dL Magnesium 2.0 (1.6-2.6) mg/dL Total Bilirubin 0.5 (0.0-1.0) mg/dL AST 22 (5-37) U/L ALT 18 (0-40) U/L Alkaline Phosphatase 80 (39-117) U/L Total Protein 7.8 (6.5-8.0) g/dL Albumin 4.7 (3.5-5.0) g/dL Salicylates < 5.0 L (15-30) mg/dL Acetaminophen < 3 (<30) mcg/mL Ethyl Alcohol < 10 mg/dL Independent Interpretation I performed an independent interpretation of an: CT Scan Radiology Impression Discussion of test interpretation with radiology: I have reviewed the radiologist's reading. External Record Review External record reviewed: Office record, Outpatient record and Prior outpatient labs Chronic Conditions Patient?s care impacted by: Other (polysubstance ) Critical Care Time Critical Care Time Critical Care Time: No Discharge Plan Discharge Clinical Impression: Drug overdose Patient Disposition: Home, Self-Care Instructions: Adult Overdose (ED) Additional Instructions: Take your medications as prescribed. If you were prescribed antibiotics today, it is important that you take your medication to their entirety, do not skip any doses, do not finish them early. Follow-up with your primary care provider this week. Return to the emergency department with new or worsening symptoms. Such as fevers, chills, chest pain, shortness of breath, nausea, vomiting, dizziness, headache, vision changes, lethargy In case of emergency call 911 You were given Narcan, please carry with this with you at all times this can save your life. CT/CT head/brain wo IV con IMPRESSION: No acute intracranial pathology. Prescriptions: No Action buprenorphine-naloxone [Suboxone] 2-0.5 mg film 1 film sublingual DAILY Qty: 12 0RF Referrals: Gladys Yo, [facility] [Primary Care Provider] - 2 days Stand Alone Forms: Work/School Release Print Language: Georgian
[2023-08-10 21:45] LABS: Acetaminophen LAB < 3 mcg/mL (<30); Alanine Aminotransferase 18 U/L (0-40); Albumin Level 4.7 g/dL (3.5-5.0); Alkaline Phosphatase 80 U/L (39-117); Anion Gap 18 (12-20); Aspartate Amino Transferase 22 U/L (5-37); Bilirubin Total 0.5 mg/dL (0.0-1.0); Blood Urea Nitrogen 7 mg/dL (9-16); Calcium 9.1 mg/dL (8.4-10.2); Carbon Dioxide 25 mmol/L (22-29); Chloride 106 mmol/L (96-108); Creatinine Clr Calc Pharmacy 127.8; Estimated Glomerular Filt Rate > 60; Ethanol < 10 mg/dL; Glucose Random 126 mg/dL (60-115); Potassium 3.6 mmol/L (3.3-5.1); Salicylate < 5.0 mg/dL (15-30); Sodium 145 mmol/L (135-145); Total Protein 7.8 g/dL (6.5-8.0)
--- NOTE | 2023-08-10 21:51 | PC.NURSE ---
CARE TEAM AT BEDSIDE
--- NOTE | 2023-08-10 21:56 | PC.NURSE ---
NARCAN TO BE GIVEN AT TIME OF DISCHARGE FOR HOME
[2023-08-10 21:58] VITALS: BP 127/74; PULSE 70; RESP 16; TEMP 36.8; O2SAT 100
--- NOTE | 2023-08-10 21:59 | MHC.EDTECH ---
Hourly rounds and vitals completed,call quintanilla in reach
--- NOTE | 2023-08-10 22:02 | HO.SUDE ---
Presenting concern: Accidental overdose on alleged percocet. No urine tox screen collected at time of SUDE being completed. Received two bystander doses of narcan prior to arrival to the ER via ambulance. Pt reported that he was doing well in his recovery but today made a bad decision to hang out with someone that he knew would be a bad influence on his recovery. History of use: Intermittent percocet use since age 19. Last use, prior to today, was in September 2022. History of mental illness: Pt denied having any history of anxiety, depression, other mood disorder, or psychosis. No history of SI, self, harm, or aggressive behavior. Treatment history: Pt has a history of one previous opiate overdose in September 2022. Pt was medically admitted to the hospital at that time and seen for recovery consult by Aura Gacria NP and initiated on suboxone. Pt reported that he continued to receive suboxone through the [facility] for 6 months and then requested to wean off. Pt continues to see a clinician at the clinic every 3 weeks and has a debt recovery officer that he checks in with every week or so. No history of detox, IOP, peer run support meetings, etc. No history of mental health treatment. Pt declined wanting any resources or referrals today. He was encouraged to connect with his contacts at the [facility] if he changes his mind and wants to resume suboxone or increase engagement with providers.
[2023-08-10 22:45] VITALS: BP 119/69; PULSE 74; RESP 18; TEMP 36.7; O2SAT 98
[2023-08-10 22:47] VITALS: BP 119/69; PULSE 74; RESP 18; TEMP 36.7; O2SAT 98
[2023-08-10 22:50] LABS: Appearance Urine Clear; Color Urine Yellow; Glucose Urine UA Negative (Negative); Leukocyte Esterase Urine Negative (Negative); Nitrite Urine Negative (Negative); PH 6.5 (5.0-9.0); UMIC TRIGGER UACC YES; Urine Blood Negative (Negative); Urine Ketones 15 mg/dL (Negative); Urine Protein 30 (1+) mg/dL (Neg-Trace)
[2023-08-10 22:59] LABS: Bacteria Urine None Seen (None Seen); Granular Casts Urine Present; RBC Urine 0-2 /HPF (0-2); Squamous Epithelial Cell Urine 0-2 /HPF (0-2); WBC Urine 0-5 /HPF (0-5)
== END 2023-08-10 22:49 | disposition home or self-care (01) ==
PROVIDERS: Physician Assistant; Emergency Provider Emergency Medicine; PCP Nurse Practitioner Primary Care
DX: F19.10 Other psychoactive substance abuse, uncomplicated (principal); T40.2X1A Poisoning by other opioids, accidental (unintentional), initial encounter; Y92.009 Unspecified place in unspecified non-institutional (private) residence as the place of occurrence of the external cause; F11.20 Opioid dependence, uncomplicated
CPT/HCPCS: 36415; 70450; 80053; 80143; 80179; 80307; 81001; 83735; 85025; 99284

== ENCOUNTER 2024-10-29 09:41 | Emergency (ER) | payer MEDICAID, SELFPAY ==
--- NOTE | ~2024-10-29 | XR_ITS ---
EXAMINATION: XR CHEST CLINICAL INFORMATION: cough, SOB COMPARISON: Chest radiograph on October 06, 2022 TECHNIQUE: 2 views of the chest were obtained. FINDINGS: Lungs: Hyperinflated lungs. No focal consolidation or evidence of pulmonary edema. Pleura: No pneumothorax or pleural effusion. Heart/Mediastinum: Cardiomediastinal silhouette is within normal limits. Bones/Soft Tissues: No acute findings. XR/XR chest 2V IMPRESSION: No acute abnormality. Electronically signed by: Amarilys Blank MD 10/29/2024 10:32 AM EDT
[2024-10-29 09:44] VITALS: BP 142/67; PULSE 70; RESP 16; TEMP 36.1; O2SAT 96; BMI 33.0
--- NOTE | 2024-10-29 09:48 | ED_ITS ---
HPI - General Adult General Chief complaint: General Medical Stated complaint: vomiting chest and back pain Time Seen by Provider: 10/29/24 09:48 Source: patient Mode of arrival: ambulatory Limitations: no limitations History of Present Illness ED Provider: SHIREEN Amos HPI narrative: Patient is a 29 year male at with no significant medical history presenting to the emergency department with nausea, left chest and upper quadrant pain with radiation to his left scapula, and feeling generally unwell. Patient reports the pain started yesterday, but this morning he woke up feeling worse with nausea and one episode of non-bloody diarrhea. Patient states that the pain gets worse with inspiration and he feels like he cannot take a complete deep breath. Patient states that his daughter was sick recently. Patient denies any fevers, chills, dizziness, headache, lightheadedness, urinary symptoms, changes to diet and appetite, or any other symptoms at this time. Patient reports marijuana use but has decreased his use recently. Patient denies any cigarette smoking, active ETOH, or other substance at this time. Onset (ago): day(s) (2 days) Related Data Previous Rx's ?Medication ?Instructions ?Recorded buprenorphine 2 mg-naloxone 0.5 mg 1 film sublingual D AILY #12 ea 10/07/22 sublingual film (Suboxone) ondansetron 4 mg disintegrating 4 mg PO Q8H 3 days #9 tabs 10/29/24 tablet Allergies Allergy/AdvReac Type Severity Reaction Status Date / Time No Known Allergies Allergy Verified 10/29/24 09:46 Review of Systems 2 Constitutional: Constitutional: Reports as per HPI Eyes: Eyes: Reports as per HPI ENT: Reports as per HPI Cardiovascular: Cardiovascular: Reports as per HPI Respiratory: Respiratory: Reports as per HPI Gastrointestinal: Gastrointestinal: Reports as per HPI Genitourinary: Genitourinary: Reports as per HPI Musculoskeletal: Musculoskeletal: Reports as per HPI Integumentary/Breasts: Skin/Breast: Reports as per HPI Neurologic: Reports as per HPI Psychiatric: Psychiatric: Reports as per HPI Endocrine: Endocrine: Reports as per HPI Hematologic/Lymphatic: Hematologic/Lymphatic: Reports as per HPI Allergic/Immunologic: Allergic/Immunologic: Reports as per HPI [facility] Past Medical History Attestation statement: The following information was validated with the patient. Source: old records reviewed and nursing notes reviewed Medical History Polysubstance abuse Polysubstance abuse Surgical History No pertinent past surgical history Social History Social History Alcohol intake: never Patient Tobacco Use Status: Refuse Tobacco use screen Substance Use Type: Marijuana and Opiates Advance Directives: No Advance Directives Information Provided: Yes Physical Exam ED Vital Signs: Vital Signs - 24 hr 10/29/24 09:44 10/29/24 12:17 10/29/24 12:46 Temperature 97 F 97.7 F 97.7 F Pulse Rate 70 58 58 Respiratory Rate 16 15 15 Blood Pressure 142/67 H 102/61 102/61 Pulse Oximetry 96 98 98 Oxygen Delivery Method Room Air Room Air Room Air BMI result Body Mass Index 33.0 Const General: cooperative, no acute distress, alert and awake Nutritional Appearance: well nourished Orientation/consciousness: patient oriented x3 HENMT Head: Yes normal to inspection and Yes atraumatic Ears: hearing grossly normal bilaterally and external ears normal General nose exam: Normal external nose present, no nasal discharge noted and no epistaxis Face and sinus: Yes normal facial exam, No abrasion and No laceration Mouth: Normal oral and palatal mucosa present, no drooling and no muffled voice Eyes General: appearance normal, both eyes and all related structures Periorbital: periorbital findings normal Eyelids: Yes eyelids normal Conjunctivae: conjunctivae normal Pupils: Equal, round and reactive pupils present EOM: EOMs intact bilaterally Neck Neck: Yes normal visual inspection and Yes full ROM Resp Other: pain with deep inspiration Effort & Inspection: normal respiratory effort and able to speak in complete sentences Auscultation: clear to auscultation bilaterally GI Palpation (GI): Soft to palpation, not firm and Tenderness to palpation present (GI) in the LUQ Neuro General: patient oriented x3, moves all extremities and CN's II-XI intact bilaterally Cranial nerves: Yes Equal, round and reactive pupils present Cognition (Neuro): normal cognition Extrem General: Yes normal to inspection, Yes full ROM and Yes capillary refill normal Psych Appearance: grossly normal Mental Status: mental status grossly normal Affect: normal affect Attitude: cooperative Thought process: Normal thought process present Thought content: Normal thought content present Insight: Good insight present (Psych) Medications Administered Discontinued Medications Generic Name Dose Route Start Last Admin Trade Name Tyra PRMayank Reason Stop Dose Admin Ketorolac Tromethamine 15 mg 10/29/24 09:58 10/29/24 10:17 Ketorolac Tromethamine 15 Mg/Ml Vial IVPUSH 10/29/24 09:59 15 mg ONCE ONE Administration Ondansetron HCl 4 mg 10/29/24 09:58 10/29/24 10:17 Ondansetron Hcl 4 Mg/2 Ml Vial IVPUSH 10/29/24 09:59 4 mg ONCE ONE Administration Medical Decision Making Medical Decision Making [facility] Narrative: Patient is a 29 year male at with no significant medical history presenting to the emergency department with nausea, left chest and upper quadrant pain with radiation to his left scapula, and feeling generally unwell. Patient's physical exam was as noted in the physical exam portion of this note. Patient's blood work was unremarkable. Patient's EKG was unremarkable. Patient's chest x-ray showed no acute process. Patient's clinical presentation is most consistent with a viral illness. I explained my physical exam findings as well as all test results to the patient. I answered all questions asked by the patient. Patient received IV Toradol and Zofran which, upon re-evaluation, he stated it helped his symptoms significantly. I stressed the importance of the patient taking his medication as directed (either prescribed or as the over the counter packaging recommends). I stressed the importance of the patient following up with his primary care provider. I stressed the importance of the patient returning to the emergency department immediately if his symptoms were to worsen or if he were to develop any dizziness, shortness of breath, difficulty breathing, chest pain, blurry vision, loss of vision, nausea, vomiting, abdominal pain, fever, chills, back pain, or any other complaints. Patient verbalized agreement and understanding with this treatment plan and discharge. Differential Diagnosis Differential Diagnoses: The differential diagnosis associated with the presentation includes Nausea Upper back pain Viral illness URI Pleurisy Costochondritis Admission/Observation Consideration of admission/observation: Escalation of care including admission/observation considered Patient would have been admitted to the hospital had his work up had any findings where hospital admission was appropriate and his clinical presentation warranted hospital admission. Lab Data [facility] Lab Attestation statement: I reviewed the patient's lab results. My interpretation of these results are in the MDM Rationale portion of this note. 10/29/24 10:14 10/29/24 10:14 Labs: Lab Results 10/29/24 10/29/24 10/29/24 Range/Units 10:14 11:31 11:34 WBC 5.1 (4.8-10.8) X10*3/uL RBC 5.29 (4.60-5.80) X10*6/uL Hgb 15.6 (14.0-18.0) g/dl Hct 45.4 (42.0-52.0) % MCV 85.8 (80.0-98.0) fL MCH 29.5 (27.0-33.0) pg MCHC 34.4 (31.0-36.0) g/dl RDW 13.2 (11.0-16.0) % Plt Count 308 (160-400) X10*3/uL MPV 10.0 (9.4-12.4) fL Immature Gran % (Auto) 0.4 (0.0-0.4) % Neut % (Auto) 58.5 (45-73) % Lymph % (Auto) 29.0 (20-40) % [place] % (Auto) 9.7 (2-11) % Eos % (Auto) 1.2 (0-4) % Baso % (Auto) 1.2 (0-2) % Lymph # (Auto) 1.5 (1.2-4.9) X10*3/uL [place] # (Auto) 0.5 (0.1-1.2) X10*3/uL Eos # (Auto) 0.1 (0.0-0.4) X10*3/uL Baso # (Auto) 0.1 (0.0-0.2) X10*3/uL Abs Immat Gran (auto) 0.02 (0.00-0.03) X10*3/uL Absolute Neuts (auto) 3.0 (2.0-8.3) x10*3/uL Absolute Nucleated RBC 0.000 (0.0-0.012) X10*3/uL Nucleated RBC % (auto) 0.0 (0.0-0.2) /100WBC PT 9.9 L (10.9-12.4) SEC INR 0.9 (0.9-1.1) Sodium 144 (135-145) mmol/L Potassium 3.8 (3.3-5.1) mmol/L Chloride 109 H (96-108) mmol/L Carbon Dioxide 27 (22-29) mmol/L Anion Gap 12 (12-20) BUN 10 (9-16) mg/dL Creatinine 0.81 (0.5-1.4) mg/dL Estim Creat Clear Calc 155.8 Estimated GFR > 60 Random Glucose 117 H (60-115) mg/dL Calcium 9.1 (8.4-10.2) mg/dL Magnesium 2.2 (1.6-2.6) mg/dL Total Bilirubin 0.3 (0.0-1.0) mg/dL AST 41 H (5-37) U/L ALT 59 H (0-40) U/L Alkaline Phosphatase 88 (39-117) U/L Troponin I High Sens < 2.7 D (<3.5-35.0) ng/L Total Protein 7.5 (6.5-8.0) g/dL Albumin 4.6 (3.5-5.0) g/dL Urine Color Yellow Urine Appearance Clear Urine pH 7.0 (5.0-9.0) Ur Specific [place] 1.020 (1.005-1.025) Urine Protein Negative (Neg-Trace) mg/dL Urine Glucose (UA) Negative (Negative) mg/dL Urine Ketones Negative (Negative) mg/dL Urine Blood Negative (Negative) Urine Nitrite Negative (Negative) Ur Leukocyte Esterase Negative (Negative) Urine RBC 0-2 (0-2) /HPF Urine WBC 0-5 (0-5) /HPF Ur Squamous Epith Cells 0-2 (0-2) /HPF Urine Bacteria None Seen (None Seen) Hyaline Casts 0-2 (0-2) /LPF COVID-19 (NILSA) Negative (Negative) COVID-19 Clin Com See Note Influenza Type A (AMOS) Negative (Negative) Influenza Type B (AMOS) Negative (Negative) Influenza A & B Note See Note Independent Interpretation I performed an independent interpretation of an: EKG and Plain X-Ray Interpretation: My interpretation is in agreement with the radiologist's impression of this imaging study. L Reason for Exam: cough, SOB EXAMINATION: XR CHEST CLINICAL INFORMATION: cough, SOB COMPARISON: Chest radiograph on October 06, 2022 TECHNIQUE: 2 views of the chest were obtained. FINDINGS: Lungs: Hyperinflated lungs. No focal consolidation or evidence of pulmonary edema. Pleura: No pneumothorax or pleural effusion. Heart/Mediastinum: Cardiomediastinal silhouette is within normal limits. Bones/Soft Tissues: No acute findings. XR/XR chest 2V IMPRESSION: No acute abnormality. Electronically signed by: Amarilys Blank MD 10/29/2024 10:32 AM EDT RP Dictated By: Amarilys Blank MD Signed By: Electronically signed by Amarilys Blank MD 10/29/24 1032 I independently interpreted this EKG and am in agreement with the below findings: Vent. Rate: 66 BPM Atrial Rate: 66 BPM P-R Int: 122 ms QRS Dur: 106 ms QT Int: 398 ms P-R-T Axes: 34 3 14 degrees QTcB Int: 417 ms Normal sinus rhythm Incomplete right bundle branch block When compared with ECG of 07-Oct-2022 07:35, No significant change was found DD/ 1004 Radiology Impression Discussion of test interpretation with radiology: I have reviewed the radiologist's reading. Discharge Plan Discharge Clinical Impression: Viral illness, Nausea Patient Disposition: Home, Self-Care Instructions: Acute Nausea and Vomiting (DC), Viral Syndrome (ED) Additional Instructions: Your work up today was reassuring there is no EMERGENT cause for your symptoms. I believe you have a viral illness. Please stay well hydrated. IF you are prescribed home medications and/or you are taking over the counter medications at home - it is very important you continue to do so as prescribed / directed unless told otherwise. Follow up with a primary care provider. Return to the emergency department immediately if your symptoms worsen or if you develop any numbness, tingling, dizziness, shortness of breath, difficulty breathing, chest pain, blurry vision, loss of vision, nausea, vomiting, abdominal pain, fever, chills, back pain, or any other complaints. Please see the information below about our Patient Portal. If you are not yet enrolled in the [facility] Patient Portal, you will receive an enrollment email invitation following your visit to any [facility] setting. You may also self-enroll in the Patient Portal by visiting our website: [email or web address] The following information is required to access the Patient Portal: - Your [facility] Medical Record Number - Your personal home email address (must match what is in your electronic medical record, Registration staff can assist with this) - Name - Date of Capabilities of the Patient Portal: - Message some providers - View upcoming appointments - Access your health summary, medical history, and visit history - View current conditions and allergies - View procedure and lab results - View your medications, including guidelines, side effects, and precautions - Complete pre-appointment questionnaires requested by your provider - Ready summary reports of your office visits and procedures To access the Patient Portal Mobile Trey, follow these directions: - Search [employer] in the Trey Store or [employer]ikt Store - Download the Trey - Search for [facility] - Enter your login/password Prescriptions: New ondansetron 4 mg tablet,disintegrating 4 mg PO Q8H 3 Days Qty: 9 0RF No Action buprenorphine-naloxone [Suboxone] 2-0.5 mg film 1 film sublingual DAILY Qty: 12 0RF Referrals: Gladys Yo NP [Primary Care Provider, Internal Medicine] Interventions: ED Discharge Assessment Last Done: 10/29/24 12:46 Discharge Date/Time: 10/29/24 12:48 Print Language: Romansh
--- NOTE | 2024-10-29 09:58 | ECG_ITS ---
Test Reason : CHEST PAIN / SOB Blood Pressure : */* mmHG Vent. Rate : 66 BPM Atrial Rate : 66 BPM P-R Int : 122 ms QRS Dur : 106 ms QT Int : 398 ms P-R-T Axes : 34 3 14 degrees QTcB Int : 417 ms Normal sinus rhythm Incomplete right bundle branch block Borderline ECG When compared with ECG of 07-Oct-2022 07:35, No significant change was found Referred By: Vianey Salgado Electronically Signed By: KRISTA MENDEZ
[2024-10-29 10:25] LABS: MANUAL DIFF FLAG NO
[2024-10-29 10:28] LABS: Hematocrit 45.4 % (42.0-52.0); Hemoglobin 15.6 g/dl (14.0-18.0); Imm Gran Abs Auto 0.02 X10*3/uL (0.00-0.03); Imm Gran Pct Auto 0.4 % (0.0-0.4); Lymphocytes Absolute Auto 1.5 X10*3/uL (1.2-4.9); Mean Corpuscular HGB Conc 34.4 g/dl (31.0-36.0); Mean Corpuscular Hemoglobin 29.5 pg (27.0-33.0); Mean Corpuscular Volume 85.8 fL (80.0-98.0); NRBC Abs Auto 0.000 X10*3/uL (0.0-0.012); NRBC Pct Auto 0.0 /100WBC (0.0-0.2); Platelet Count 308 X10*3/uL (160-400); Red Blood Count 5.29 X10*6/uL (4.60-5.80); White Blood Count 5.1 X10*3/uL (4.8-10.8)
[2024-10-29 10:34] LABS: INTERNATIONAL NORM RATIO 0.9 (0.9-1.1); Prothrombin Time 9.9 SEC (10.9-12.4)
[2024-10-29 11:14] LABS: Alanine Aminotransferase 59 U/L (0-40); Albumin Level 4.6 g/dL (3.5-5.0); Alkaline Phosphatase 88 U/L (39-117); Anion Gap 12 (12-20); Aspartate Amino Transferase 41 U/L (5-37); Blood Urea Nitrogen 10 mg/dL (9-16); Calcium 9.1 mg/dL (8.4-10.2); Carbon Dioxide 27 mmol/L (22-29); Chloride 109 mmol/L (96-108); Creatinine Clr Calc Pharmacy 155.8; Estimated Glomerular Filt Rate > 60; Magnesium 2.2 mg/dL (1.6-2.6); Potassium 3.8 mmol/L (3.3-5.1); Sodium 144 mmol/L (135-145); Total Protein 7.5 g/dL (6.5-8.0)
[2024-10-29 11:26] LABS: Troponin-I High Sensitivity < 2.7 ng/L (<3.5-35.0)
[2024-10-29 11:44] LABS: Appearance Urine Clear; Glucose Urine UA Negative (Negative); PH 7.0 (5.0-9.0); Specific Gravity - Urine 1.020 (1.005-1.025)
[2024-10-29 12:01] LABS: COVID-19 Test Negative (Negative); IDNOW Serial# 08D9AD1C; IDNOW Serial# 55D5AD1C; Influenza B2 Negative (Negative)
--- OUTSIDE RECORDS SUMMARY | 2024-10-29 12:10 | XMS_ITS | Clinical Summary ---
Author Organization [employer] Address [address] [facility] [address] [place] [address] Care Team Providers Care Heavy Equipment Operator/Paver Name Role Phone Paul Harley Primary Care Provider [phone] Allergies No known active allergies Medications Suboxone 2-0.5 MG per sublingual filmIndications: Uncomplicated opioid dependence (CMS/HCC) Place 1 Film under the tongue Once per day for 28 days. 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 Encounters Date Type Department Care Team Description 10/29/2024 Orders Only GENERIC EXTERNAL DATA DEPARTMENT Provider, Generic External Data from Last 3 Months Immunizations Immunization Administration Dates Next Due DTaP 07/15/2002, 9,02/09/1998,12/08,1997 HPV 9-Valent 08/23/2014 Hep A, ped/adol, 2 dose 08/23/2014 Hep B, Adolescent or Pediatric 02/09/1998,1997,1997 Hib (HbOC) 12/06/1998, 8,1997,09/29 IPV 07/15/2002, 9,1997,09/29 Influenza injectable quadriv alent preservative free 01/16/2019 MMR 07/15/2002,08/10/1998 Meningococcal MCV4P [id number] 10/05/2009 Tdap 01/16/2019,10/05/2009 Varicella 10/05/2009,08/10/1998 Social History Tobacco Use Types Packs/Day Years Used Date Smoking Tobacco: Never Smokeless Tobacco: Current Tobacco Cessation:Ready to Q uit: Not Asked; Counseling Given: Not Answered Alcohol Use Standard Drinks/Week Comments Never 0 (1 standard drink = 0.6 oz pur e alcohol) Depression Answer Date Recorded Patient Health Questionnaire-9 Score 0 05/30/2023 Patient Health Questionnaire-9 Score 0 05/30/2023 Last PHQ-9: Questionnaire Data Not on file 0 05/30/2023 Housing Stability Answer Date Recorded What is your housing situation today? I have trevor larios 05/30/[address] you li ve. Do you have problems with any of the following? None of the above 05/30/2023 Food Insecurity Answer Date Recorded Within the past 12 months, y ou worried that your food would run out before you got money to buy more: Never True 05/30/2023 Within the past 12 months,th e food you bought just didn't last and you didn't have enough money to get more: Never True Transportation Answer Date Recorded In the past 12 months, has l ack of transportation kept you from medical appts, meetings, work or from getting things needed for daily living? No 05/30/2023 Utilities Answer Date Recorded In the past 12 months, has t he electric, gas, oil or water company threatened to shut off services in your home? No 05/30/2023 Depression Answer Date Recorded Patient Health Questionnaire-2 Score 0 05/30/2023 Sex and Gender Information Value Date Recorded Sex Assigned at Male 12/11/2021 10:15 AM EDT Legal Sex Male 10:15 AM EDT Gender Identity Male 12/11/2021 10:15 AM EDT Sexual Orientation Straight 12/11/2021 10 :15 AM EDT Last Filed Vital Signs Vital Sign Reading Time Taken Comments Blood Pressure 125/86 10/11/2022 3:09 PM EDT Pulse 63 10/11/2022 3:09 PM EDT Temperature 36.6 C (97.8 F) 10/11/2022 3:09 PM EDT Respiratory Rate 24 07/24/2022 3:53 PM EDT Oxygen Saturation - - Inhaled Oxygen Concentration - - Weight 84.4 kg (186 lb) 07/24/2022 3:53 PM EDT Height 172.7 cm (5' 8 ) 07/24/2022 3:53 PM EDT Body Mass Index 28.28 07/24/2022 3:53 PM EDT Plan of Treatment Health Maintenance Due Date Last Done Comments Disability Screening 1997 Alcohol/Substance Use Screening 2009 Family Planning (PISQ) 2012 HPV Vaccines (2 - Male 3-dose series) 09/20/2014 08/23/2014 Hepatitis A Vaccines (2 of 2 - 2-dose series) 02/23/2015 08/23/2014 Tobacco Screening 07/25/2023 07/24/2022 Depression Screening 05/29/2024 05/30/2023, 05/30/19 24 SDOH Screening 05/29/2024 05/30/2023 COVID-19 Vaccine (1 - season) 2024 Influenza Vaccine (#1) 2024 01/16/2019 DTaP/Tdap/Td Vaccines (8 - Td or Tdap) 01/16/2029 01/16/2019, 10/05/2009, 07/15/2002, Additional history exists Zoster Vaccines (1 of 2) 07/31/2047 RSV Patients and Patients Aged 60 years or older (1 - 1-dose 75+ series) 2072 Hepatitis B Vaccines Completed 02/09/1998, 1997, 1997 HIB Vaccines Completed 12/06/1998, 01/13, 1997, Additional history exists IPV Vaccines Completed 07/15/2002, 07/14, 1997, Additional history exists Meningococcal Vaccine Aged Out 10/05/2009 No aramis trey eligible based on patient's age to complete this topic HIV Screening Completed 01/16/2019 Hepatitis C Screening Completed 01/16/2019 Meningococcal B Vaccine Aged Out No l onger eligible based on patient's age to complete this topic Pneumococcal Vaccine: Pediatrics (0 to 5 Years) and At-Risk Patients (6 to 49) Years Aged Out No longer eligible based on patient's age to complete this topic RSV under 20 months Aged Out No longe r eligible based on patient's age to complete this topic Rotavirus Vaccines Aged Out No longer eligible based on patient's age to complete this topic Procedures Procedure Name Priority Date/Time Associated Diagnosis Comments URINALYSIS, COMPLETE, WITH REFLEX TO CULTURE Routine 10/29/2024 11:34 AM EDT COVID-19 ID NOW ([facility]) Routine 10/29/2024 11:31 AM EDT INFLUENZA A B2 ID NOW ([facility]) Routine 10/29/2024 11:31 AM EDT XR CHEST 2 VIEWS Routine 10/29/2024 10:2 5 AM EDT HIGH SENSITIVITY TROPONIN I Routine 10/29/2024 10:14 AM EDT MAGNESIUM Routine 10/29/2024 10:14 AM EDT COMPREHENSIVE METABOLIC PANEL Routine 10/29/2024 10:14 AM EDT PROTHROMBIN TIME-INR Routine 10/29/2024 10:14 AM EDT CBC WITH AUTO DIFFERENTIAL Routine 10/29/2024 10:14 AM EDT [facility] HISTORICAL HEPATITIS C ANTIBODY RFLX Routine 01/16/2019 12:05 PM EST [facility] HISTORICAL HIV AB/AG Routine 01/16/2019 12:05 PM EST from Last 3 Months or Most Recently Relevant to Health Maintenance Results * Urinalysis, Complete, with Reflex to Culture (10/29/2024 11:34 AM EDT) Color Urine Yellow [facility] Appearance Urine Clear [facility] PH 7.0 5.0 - 9.0 [facility] Glucose Urine UA Negative Negative mg/dL [facility] Urine Blood Negative Negative [facility] Specific [place] - Urine 1.020 1.005 - 1.025 [facility] Urine Protein Negative Neg-Trace mg/dL [facility] Urine Ketones Negative Negative mg/dL [facility] Nitrite Urine Negative Negative [facility] Leukocyte Esterase Urine Negative Negative [facility] RBC Urine 0-2 0 - 2 /HPF [facility] Urine WBC 0-5 0 - 5 /HPF [facility] Urine Squamous Epithelial Cell 0-2 0 - 2 /HPF [facility] Urine Bacteria None Seen None Seen [facility] Hyaline Casts, Urine 0-2 0 - 2 /LPF [facility] 10/29/2024 11:3 4 AM EDT 10/29/2024 11:39 AM EDT Narrative [facility] - 10/29/2024 11:48 AM EDT [id number], Clean Catch us Generic External Data Provider LAB URINE ORDERAB LES Final Result Performing Organization Address City/[facility] Co de Phone Number [facility] [address] [place] [phone] * Influenza A B2 ID NOW ([facility]) (10/29/2024 11:31 AM EDT) IDNOW SERIAL# [id number] [facility] Influenza A Negative Negative [facility] Influenza B2 Negative Negative [facility] Influenza A B2 Note See Note [facility] Comment:The [facility] ID NOW In fluenza A B2 test is used for thequalitative detection of influenza A and B from patientswith signs and symptoms of respiratory infection.Negative results do not preclude influenza virus infectionand should not be used as the sole basis for diagnosis,treatment or other patient management decisions.There is a risk of false negative results due to thepresence of variants in the viral targets of the assay, lowlevels of virus in the specimen and co- infection withRespiratory Syncytial Virus. 10/29/2024 11:3 1 AM EDT 10/29/2024 11:39 AM EDT us Generic External Data Provider LAB MICROBIOLOGY - GENERAL ORDERABLES Final Result Performing Organization Address City/[facility]/ZIP Co de Phone Number [facility] [address] [place] [address] [phone] * COVID-19 ID NOW ([facility]) (10/29/2024 11:31 AM EDT) IDNOW SERIAL# [id number] [facility] COVID-19 TEST Negative Negative [facility] COVID-19 NOTE See Note [facility] Comment: Results are for the identification of SARS-CoV2 RNA. TheSARS-CoV2 RNA is generally detectable in respiratory samplesduring the acute phase of infection. Positive results areindicative of the presence of SARS-CoV-2 RNA; clinicalcorrelation with patient history and other diagnosticinformation is necessary to determine patient infectionstatus. Positive results do not rule out bacterial infectionor co- infection with other viruses.Testing facilities within the [facility] and itsterritories are required to report all positive results tothe appropriate public health authorities.Negative results should be treated as presumptive and, ifinconsistent with clinical signs and symptoms or necessaryfor patient management, should be tested with differentauthorized or cleared molecular tests. Negative results donot preclude SARS-CoV2 RNA infection and should not be usedas the sole basis for patient management decisions. Negativeresults should be considered in the context of a patient'srecent exposures, history and the presence of clinical signsand symptoms consistent with COVID-19.This test has been authorized by the FDA under an EmergencyUse Authorization (EUA) for use by authorized laboratories.Testing performed on the [facility] ID NOW utilizing NAAT. 10/29/2024 11:3 1 AM EDT 10/29/2024 11:39 AM EDT us Generic External Data Provider LAB MOLECULAR FRANCISCO GNOSTICS ORDERABLES Final Result Performing Organization Address City/[facility]/ZIP Co de Phone Number [facility] [address] [place] [address] [phone] * XR Chest 2 Views (10/29/2024 10:25 AM EDT) Anatomical Region Laterality Modality Chest Radiographic Eusebia ging 10/29/2024 10:2 5 AM EDT Narrative 10/29/2024 10:36 AM EDT [address] [address] XRay Report Signed Patient: Arnulfo Chaparro MR#: [id number] : 1995 Acct:[id number] Age/Sex: 29 / M ADM Date: 10/29/24 Loc: .ED Attending Dr: Ordering Physician: Vianey Salgado Date of Service: 10/29/24 Procedure(s): XR chest 2V Accession Number(s): [id number] cc: Vianey Salgado; PAUL HARLEY NP Reason for Exam: cough, SOB EXAMINATION: XR CHEST CLINICAL INFORMATION: cough, SOB COMPARISON: Chest radiograph on October 06, 2022 TECHNIQUE: 2 views of the chest were obtained. FINDINGS: Lungs: Hyperinflated lungs. No focal consolidation or evidence of pulmonary edema. Pleura: No pneumothorax or pleural effusion. Heart/Mediastinum: Cardiomediastinal silhouette is within normal limits. Bones/Soft Tissues: No acute findings. XR/XR chest 2V IMPRESSION: No acute abnormality. Electronically signed by: Amarilys Blank MD 10/29/2024 10:32 AM EDT Dictated By: Amarilys Blank MD Signed By: <Electronically signed by Amarilys Blank MD in OV> 10/29/24 1032 DD/ 1025 TD/TT: 10/29/24 1029 Ribbon Sweatband Operator: Procedure Note Donotuseinterpreter, Image - 10/29/[address] [address] XRay Report Signed Patient: Arnulfo Chaparro OMR#: [id number] : 1995Acct:[id number] Age/Sex: 29 / MADM Date: 10/29/24 Loc: .ED Attending Dr: Ordering Physician: Vianey Salgado Date of Service: 10/29/24 Procedure(s): XR chest 2V Accession Number(s): [id number] cc: Vianey Salgado; PAUL HARLEY NP Reason for Exam: cough, SOB EXAMINATION: XR CHEST CLINICAL INFORMATION: cough, SOB COMPARISON: Chest radiograph on October 06, 2022 TECHNIQUE: 2 views of the chest were obtained. FINDINGS: Lungs: Hyperinflated lungs. No focal consolidation or evidence of pulmonary edema. Pleura: No pneumothorax or pleural effusion. Heart/Mediastinum: Cardiomediastinal silhouette is within normal limits. Bones/Soft Tissues: No acute findings. XR/XR chest 2V IMPRESSION: No acute abnormality. Electronically signed by: Amarilys Blank MD 10/29/2024 10:32 AM EDT RP Dictated By: Amarilys Blank MD Signed By: <Electronically signed by Amarilys Blank MD in OV> 10/29/24 1032 DD/ 1025 TD/TT: 10/29/24 1029 Ribbon Sweatband Operator: [facility] External Provider IMG XR PROCEDURES Edited Result - Final * High Sensitivity Troponin I (10/29/2024 10:14 AM EDT) [facility] TROPONIN I HIGH SENSITIVITY <2.7 <3.5 - 35.0 ng/L [facility] Comment:The [facility] high sens itivity Troponin-I results should beused in conjunction with other diagnostic information suchas ECG, clinical observations and information, and patientsymptoms to aid in the diagnosis of HI. 10/29/2024 10:1 4 AM EDT 10/29/2024 10:24 AM EDT Generic External Data Provider LAB BLOOD ORDERAB LES Final Result [facility] [address] [place] [phone] * CBC auto differential (10/29/2024 10:14 AM EDT) [facility] White Blood Count 5.1 4.8 - 10.8 X10*3/uL [facility] Red Blood Count 5.29 4.60 - 5.80 X10*6/uL [facility] Hemoglobin 15.6 14.0 - 18.0 g/dl [facility] Hematocrit 45.4 42.0 - 52.0 % [facility] Mean Corpuscular Volume 85.8 80.0 - 98.0 fL [facility] Mean Corpuscular Hemoglobin 29.5 27.0 - 33.0 pg [facility] Mean Corpuscular HGB Conc 34.4 31.0 - 36.0 g/dl [facility] Red Cell Distribution Width 13.2 11.0 - 16.0 % [facility] Platelet Count 308 160 - 400 X10*3/uL [facility] Mean Platelet Volume 10.0 9.4 - 12.4 fL [facility] Neutrophils Percent Auto 58.5 45 - 73 % [facility] Imm Gran Pct Auto 0.4 0.0 - 0.4 % [facility] Lymphocytes Percent Auto 29.0 20 - 40 % [facility] Monocytes Percent Auto 9.7 2 - 11 % [facility] Eosinophils Percent Auto 1.2 0 - 4 % [facility] Basophils Percent Auto 1.2 0 - 2 % [facility] NRBC Pct Auto 0.0 0.0 - 0.2 /100WBC [facility] Neutrophils Absolute Auto 3.0 2.0 - 8.3 x10*3/uL [facility] Imm Gran Abs Auto 0.02 0.00 - 0.03 X10*3/uL [facility] Lymphocytes Absolute Auto 1.5 1.2 - 4.9 X10*3/uL [facility] Monocytes Absolute Auto 0.5 0.1 - 1.2 X10*3/uL [facility] Eosinophils Absolute Auto 0.1 0.0 - 0.4 X10*3/uL [facility] Basophils Absolute Auto 0.1 0.0 - 0.2 X10*3/uL [facility] NRBC Abs Auto 0.000 0.0 - 0.012 X10*3/uL [facility] 10/29/2024 10:1 4 AM EDT 10/29/2024 10:24 AM EDT Generic External Data Provider LAB BLOOD ORDERAB LES Final Result Performing Organization Address City/[facility]/ZIP Co de Phone Number [facility] [address] [place] [phone] * (ABNORMAL) Prothrombin Time-INR (10/29/2024 10:14 AM EDT) Prothrombin Time 9.9(L) 10.9 - 12.4 SEC [facility] INTERNATIONAL NORM RATIO 0.9 0.9 - 1.1 [facility] Comment:INTERNATIONAL NORMAL IZED RATIO (INR) REFERENCE RANGES Reference RangeFor patients not on anticoagulant therapy: 0.9 - 1.1INR ranges for oral anticoagulanttherapy:For prevention and treatment of venous thrombosis and pulmonary embolism: 2.0 - 3.0For acute myocardial infarction with aspirin therapy: 2.0 - 3.0For acute myocardial infarction without aspirin therapy: 3.0 - 4.0For patients with mechanical prosthetic heart valves: 2.5 - 3.5 10/29/2024 10:1 4 AM EDT 10/29/2024 10:24 AM EDT us Generic External Data Provider LAB BLOOD ORDERAB LES Final Result Performing Organization Address City/[facility]/ZIP Co de Phone Number [facility] [address] [place] [phone] * Magnesium (10/29/2024 10:14 AM EDT) Magnesium 2.2 1.6 - 2.6 mg/dL [facility] 10/29/2024 10:1 4 AM EDT 10/29/2024 10:24 AM EDT Generic External Data Provider LAB BLOOD ORDERAB LES Final Result [facility] [address] [place], [place] [phone] * (ABNORMAL) Comprehensive Metabolic Panel (10/29/2024 10:14 AM EDT) Sodium 144 135 - 145 mmol/L [facility] Potassium 3.8 3.3 - 5.1 mmol/L [facility] Chloride 109(H) 96 - 108 mmol/L [facility] Carbon Dioxide 27 22 - 29 mmol/L [facility] Anion Gap 12 12 - 20 [facility] Urea Nitrogen (BUN) 10 9 - 16 mg/dL [facility] Creatinine, Serum 0.81 0.5 - 1.4 mg/dL [facility] Creatinine Clr Calc Pharmacy 155.8 [facility] Comment:eGFR (calculated fro m the MDRD study equation) and eCrCl(calculated from the Cockcroft-Gault equation) are based ondifferent parameters and may not yield comparable results.If eCrCl result is absurd, please check patient'sheight/weight. Estimated Glomerular Filt Rate >60 [facility] Comment:Chronic Kidney Disea se: Estimated GFR < 60 mL/min/[id number] Kidney Disease: Estimated GFR < 15 mL/min/1.73m2 Glucose 117(H) 60 - 115 mg/dL [facility] Calcium 9.1 8.4 - 10.2 mg/dL [facility] Bilirubin, Total 0.3 0.0 - 1.0 mg/dL [facility] Aspartate Amino Transferase 41(H) 5 - 37 U/L [facility] Alanine Aminotransferase 59(H) 0 - 40 U/L [facility] Total Protein 7.5 6.5 - 8.0 g/dL [facility] Albumin Level 4.6 3.5 - 5.0 g/dL [facility] Alkaline Phosphatase 88 39 - 117 U/L [facility] 10/29/2024 10:1 4 AM EDT 10/29/2024 10:24 AM EDT Generic External Data Provider LAB BLOOD ORDERAB LES Final Result Performing Organization Address City/[facility]/ZIP Co de Phone Number [facility] [address] [place] [phone] * HEPATITIS C ANTIBODY RFLX (01/16/2019 12:05 PM EST) HEPATITIS C ANTIBODY [facility] Comment: Antibodies to HCV not detected; does not exclude early acute HCV infection. 01/16/2019 12:0 5 PM EST Shazia Sweeney NP HISTORICAL/NON ORDERABLE LABS Fi nal Result Performing Organization Address [facility] Phone Number [facility] [phone] * HIV AB/AG (01/16/2019 12:05 PM EST) Pathologist [facility] HIV AG/AB [facility] Comment: HIV-1 p24 Ag and/or HIV-1/HIV-2 Ab not detected. A test result that is nonreactive does not exclude the possibility of exposure to or infection with HIV-1 and/or HIV-2. Nonreactive results in this assay for individuals with prior exposure to HIV-1 and/or HIV-2 may be due to antigen and antibody levels that are below the limit of detection of this assay. The [facility] HIV Ag/Ab Combo assay result and supplemental assay results should be interpreted in conjunction with the patient's clinical presentation, history and other laboratory results. If the results are inconsistent with clinical evidence, additional testing is suggested to confirm the result. 01/16/2019 12:0 5 PM EST Shazia Sweeney NP HISTORICAL/NON ORDERABLE LABS Fi nal Result Performing Organization Address [facility] Co de Phone Number [facility] [address] from Last 3 Months or Most Recently Relevant to Health Maintenance Insurance [facility] C3 Care Teams Heavy Equipment Operator/Paver Relationship Specialty Start Date End Date Paul Harley ANP [address] [place] [phone] PCP - General Family Medicine 01/20/21
--- OUTSIDE RECORDS SUMMARY | 2024-10-29 12:10 | XMS_ITS | Encounter Summary ---
Author Organization [employer] Address [address] [facility] [address] [place] [address] Care Team Providers Care J2Ee Application Developer Name Role Phone Gladys Yo Primary Care Provider [phone] Reason for Visit * Reason Onset Date Comments Nurse Triage 07/20/2022 Encounter Details Date Type Department Care Team ([facility] st Contact Info) Description 07/20/2022 Telephone [facility] [address] [place] [address] Gladys Yo ANP [address] [place] [address] Nurse Triage Social History Tobacco Use Types Packs/Day Years Used Date Smoking Tobacco: Never Assessed Sex and Gender Information Value Date Recorded Sex Assigned at Male 12/11/2021 10:15 AM EDT Legal Sex Male 10:15 AM EDT Gender Identity Male 12/11/2021 10:15 AM EDT Sexual Orientation Straight 12/11/2021 10 :15 AM EDT documented as of this encounter Miscellaneous Notes * Telephone Encounter - Kelsi Cabrera RN - 07/20/2022 2:39 PM EDT Triage call Pt reports right hip pain for a week now. Pt reports no radiation of pain, neg for numbness. Pt reports when stand up straight there is a pinching sensation in that right hip. Neg for rash, boil or skin irritation. Pt is able to walk but, has a limp in right leg. Pt requests to see PCP.Apt with PCP 07/24 @ 345pm. Insurance is verified as active prior to booking. Protocol Used: Hip Pain (Adult) Protocol-Based Disposition: See in Office or Video Visit within 2 Weeks Video visit not offered Positive Triage Question: * Mild pain (e.g., does not interfere with normal activities) and present > 7 days * All higher-acuity triage questions were negative Care Advice Discussed: * Reassurance and Education - Hip Pain * Pain Medicines * Pain Medicines - Extra Notes and Warnings * Rest Your Hip for the Next Couple Days * Reasons To Call Back - Moderate pain (e.g., limping) lasts more than 3 days - Mild pain lasts more than 7 days - Signs of infection occur (e.g., spreading redness, warmth, fever) - You become worse * Use a Cold Pack for Pain * Use Heat on Area After 48 Hours * Local Heat (Bathtub Option) * Telephone Encounter - Nicole Garrison - 07/20/2022 2:16 PM EDT Symptom: Hip Pain - right side Outcome: Schedule an urgent appointment (within 1 hour) or talk to a nurse or provider soon Reason: Trouble walking The caller accepted this outcome Please call [phone] documented in this encounter Plan of Treatment Not on file documented as of this encounter Visit Diagnoses Not on filedocumented in this encounter Care Teams J2Ee Application Developer Relationship Specialty Start Date End Date Gladys Yo ANP [address] [place] [address] PCP - General Family Medicine 01/20/21 documented as of this encounter
--- OUTSIDE RECORDS SUMMARY | 2024-10-29 12:10 | XMS_ITS | Encounter Summary ---
Author Organization [email or web address] Address [address] [facility] [address] [place] [address] Care Team Providers Care Physician Practice Market Manager Name Role Phone Paul Harley Primary Care Provider [phone] Encounter Details Date Type Department Care Team (Late st Contact Info) Description 10/29/2024 Orders Only GENERIC EXTERNAL DATA DEPARTMENT Provider, Generic External Data Social History Tobacco Use Types Packs/Day Years Used Date Smoking Tobacco: Never Smokeless Tobacco: Current Alcohol Use Standard Drinks/Week Comments Never 0 [...] AM EDT documented as of this encounter Plan of Treatment Not on file documented as of this encounter Procedures Procedure Name Priority Date/Time Associated Diagnosis Comments URINALYSIS, COMPLETE, WITH REFLEX TO CULTURE Routine 10/29/2024 11:34 AM EDT INFLUENZA A B2 ID NOW ([facility]) Routine 10/29/2024 11:31 AM EDT COVID-19 ID NOW ([facility]) Routine 10/29/2024 11:31 AM EDT XR CHEST 2 VIEWS Routine 10/29/2024 10:2 5 AM EDT HIGH SENSITIVITY TROPONIN I Routine 10/29/2024 10:14 AM EDT CBC WITH AUTO DIFFERENTIAL Routine 10/29/2024 10:14 AM EDT PROTHROMBIN TIME-INR Routine 10/29/2024 10:14 AM EDT MAGNESIUM Routine 10/29/2024 10:14 AM EDT COMPREHENSIVE METABOLIC PANEL Routine 10/29/2024 10:14 AM EDT documented in this encounter Results * Urinalysis, Complete, with Reflex to Culture (10/29/2024 11:34 AM EDT) Color Urine Yellow [facility] Appearance Urine Clear [facility] PH 7.0 5.0 - 9.0 [facility] Glucose Urine UA Negative Negative mg/dL [facility] Urine Blood Negative Negative [facility] Specific [place] - Urine 1.020 1.005 - 1.025 [facility] Urine Protein Negative Neg-Trace mg/dL [facility] Urine Ketones Negative Negative mg/dL [facility] Nitrite Urine Negative Negative [facility] Leukocyte Esterase Urine Negative Negative [facility] RBC Urine 0-2 0 - 2 /HPF [facility] Urine WBC 0-5 0 - 5 /HPF [facility] Urine Squamous Epithelial Cell 0-2 0 - 2 /HPF [facility] Urine Bacteria None Seen None Seen [facility] Hyaline Casts, Urine 0-2 0 - 2 /LPF [facility] 10/29/2024 11:3 4 AM EDT 10/29/2024 11:39 AM EDT Narrative [facility] - 10/29/2024 11:48 AM EDT [id number], Clean Catch us Generic External Data Provider LAB URINE ORDERAB LES Final Result [facility] [address] [place] [phone] * COVID-19 ID NOW ([facility]) (10/29/2024 11:31 AM EDT) IDNOW SERIAL# [id number] [facility] COVID-19 TEST Negative Negative [facility] COVID-19 NOTE See Note [facility] Comment: Results are for the identification of SARS-CoV2 RNA. TheSARS-CoV2 RNA is generally detectable in respiratory samplesduring the acute phase of infection. Positive results areindicative of the presence of SARS-CoV-2 RNA; clinicalcorrelation with patient history and other diagnosticinformation is necessary to determine patient infectionstatus. Positive results do not rule out bacterial infectionor co- infection with other viruses.Testing facilities within the [facility] and itsterritories are required to report [...] use by authorized laboratories.Testing performed on the [facility] ID NOW utilizing NAAT. 10/29/2024 11:3 1 AM EDT 10/29/2024 11:39 AM EDT Generic External Data Provider LAB MOLECULAR FRANCISCO GNOSTICS ORDERABLES Final Result Performing Organization Address [facility] Co de Phone Number [facility] [address] [place] [phone] * Influenza A B2 ID NOW ([facility]) (10/29/2024 11:31 AM EDT) IDNOW SERIAL# [id number] [facility] Influenza A Negative Negative [facility] Influenza B2 Negative Negative [facility] Influenza A B2 Note See Note [facility] Comment:The [facility] ID NOW In fluenza A B2 test [...] 1 AM EDT 10/29/2024 11:39 AM EDT Generic External Data Provider LAB MICROBIOLOGY - GENERAL ORDERABLES Final Result Performing Organization Address [facility] Co de Phone Number [facility] [address] [place] [phone] * XR Chest 2 Views (10/29/2024 10:25 AM EDT) Anatomical Region Laterality Modality Chest Radiographic Eusebia ging 10/29/2024 10:2 5 AM EDT Narrative 10/29/2024 10:36 AM EDT [address] [address] XRay Report Signed Patient: Arnulfo Chaparro MR#: [id number] : 1995 Acct:[id number] Age/Sex: 29 / M ADM Date: 10/29/24 Loc: .ED Attending Dr: Ordering Physician: Vianey Salgado Date of Service: 10/29/24 Procedure(s): XR chest 2V Accession Number(s): [id number] cc: Vianey Salgado; PAUL HARLEY NP Reason [...] 10/29/24 1032 DD/ 1025 TD/TT: 10/29/24 1029 Kit Assembler: Procedure Note Donotuseinterpreter, Image - 10/29/[address] [address] XRay Report Signed Patient: Arnulfo Chaparro OMR#: [id number] : 1995Acct:[id number] Age/Sex: 29 / MADM Date: 10/29/24 Loc: HO.ED Attending Dr: Ordering Physician: Vianey Salgado Date of Service: 10/29/24 Procedure(s): XR chest 2V Accession Number(s): [id number] cc: Vianey Salgado; PAUL HARLEY NP Reason [...] 10/29/24 1032 DD/ 1025 TD/TT: 10/29/24 1029 Kit Assembler: [facility] External Provider IMG XR PROCEDURES Edited Result - Final * High Sensitivity Troponin I (10/29/2024 10:14 AM EDT) [facility] TROPONIN I HIGH SENSITIVITY <2.7 <3.5 - 35.0 ng/L [facility] Comment:The [facility] high sens itivity Troponin-I results should beused in conjunction with other diagnostic information suchas ECG, clinical observations and information, and patientsymptoms to aid in the diagnosis of AL. 10/29/2024 10:1 4 AM EDT 10/29/2024 10:24 AM EDT Generic External Data Provider LAB BLOOD ORDERAB LES Final Result [facility] [address] [place] [phone] * Magnesium (10/29/2024 10:14 AM EDT) [facility] Magnesium 2.2 1.6 - 2.6 mg/dL [facility] 10/29/2024 10:1 4 AM EDT 10/29/2024 10:24 AM EDT us Generic External Data Provider LAB BLOOD ORDERAB LES Final Result [facility] [address] [place] [phone] * (ABNORMAL) Comprehensive Metabolic Panel (10/29/2024 10:14 AM EDT) Sodium 144 135 - 145 mmol/L [facility] Potassium 3.8 3.3 - 5.1 mmol/L [facility] Chloride 109(H) 96 - 108 mmol/L [facility] Carbon Dioxide 27 22 - 29 mmol/L [facility] Anion Gap 12 12 - 20 [facility] Urea Nitrogen (BUN) 10 9 - 16 mg/dL [facility] Creatinine, Serum 0.81 0.5 - 1.4 mg/dL [facility] Creatinine Clr Calc Pharmacy 155.8 [facility] Comment:eGFR (calculated fro m the MDRD study equation) and eCrCl(calculated from the Cockcroft-Gault equation) are based ondifferent parameters and may not yield comparable results.If eCrCl result is absurd, please check patient'sheight/weight. Estimated Glomerular Filt Rate >60 [facility] Comment:Chronic Kidney Disea se: Estimated GFR < 60 mL/min/1.13j1Wwlwrh Kidney Disease: Estimated GFR < 15 mL/min/1.73m2 Glucose 117(H) 60 - 115 mg/dL [facility] Calcium 9.1 8.4 - 10.2 mg/dL [facility] Bilirubin, Total 0.3 0.0 - 1.0 mg/dL [facility] Aspartate Amino Transferase 41(H) 5 - 37 U/L [facility] Alanine Aminotransferase 59(H) 0 - 40 U/L [facility] Total Protein 7.5 6.5 - 8.0 g/dL [facility] Albumin Level 4.6 3.5 - 5.0 g/dL [facility] Alkaline Phosphatase 88 39 - 117 U/L [facility] 10/29/2024 10:1 4 AM EDT 10/29/2024 10:24 AM EDT Generic External Data Provider LAB BLOOD ORDERAB LES Final Result Performing Organization Address [facility] Co de Phone Number [facility] [address] [place] [phone] * (ABNORMAL) Prothrombin Time-INR (10/29/2024 10:14 AM EDT) Prothrombin Time 9.9(L) 10.9 - 12.4 SEC [facility] INTERNATIONAL NORM RATIO 0.9 0.9 - 1.1 [facility] Comment:INTERNATIONAL NORMAL IZED RATIO (INR) REFERENCE [...] ORDERAB LES Final Result Performing Organization Address [facility] Co de Phone Number [facility] [address] [place] [phone] * CBC auto differential (10/29/2024 10:14 AM EDT) White Blood Count 5.1 4.8 - 10.8 X10*3/uL [facility] Red Blood Count 5.29 4.60 - 5.80 X10*6/uL [facility] Hemoglobin 15.6 14.0 - 18.0 g/dl [facility] Hematocrit 45.4 42.0 - 52.0 % [facility] Mean Corpuscular Volume 85.8 80.0 - 98.0 fL [facility] Mean Corpuscular Hemoglobin 29.5 27.0 - 33.0 pg [facility] Mean Corpuscular HGB Conc 34.4 31.0 - 36.0 g/dl [facility] Red Cell Distribution Width 13.2 11.0 - 16.0 % [facility] Platelet Count 308 160 - 400 X10*3/uL [facility] Mean Platelet Volume 10.0 9.4 - 12.4 fL [facility] Neutrophils Percent Auto 58.5 45 - 73 % [facility] Imm Gran Pct Auto 0.4 0.0 - 0.4 % [facility] Lymphocytes Percent Auto 29.0 20 - 40 % [facility] Monocytes Percent Auto 9.7 2 - 11 % [facility] Eosinophils Percent Auto 1.2 0 - 4 % [facility] Basophils Percent Auto 1.2 0 - 2 % [facility] NRBC Pct Auto 0.0 0.0 - 0.2 /100WBC [facility] Neutrophils Absolute Auto 3.0 2.0 - 8.3 x10*3/uL [facility] Imm Gran Abs Auto 0.02 0.00 - 0.03 X10*3/uL [facility] Lymphocytes Absolute Auto 1.5 1.2 - 4.9 X10*3/uL [facility] Monocytes Absolute Auto 0.5 0.1 - 1.2 X10*3/uL [facility] Eosinophils Absolute Auto 0.1 0.0 - 0.4 X10*3/uL [facility] Basophils Absolute Auto 0.1 0.0 - 0.2 X10*3/uL [facility] NRBC Abs Auto 0.000 0.0 - 0.012 X10*3/uL [facility] 10/29/2024 10:1 4 AM EDT 10/29/2024 10:24 AM EDT us Generic External Data Provider LAB BLOOD ORDERAB LES Final Result [facility] [address] [place] [phone] documented in this encounter Visit Diagnoses Not on filedocumented in this encounter Additional Health Concerns Assessment Noted Time PHQ-9 Depression Total Score: 0 05/30/19 24 3:24 PM EDT documented as of this encounter Care Teams Physician Practice Market Manager Relationship Specialty Start Date End Date Paul Harley ANP [address] [place] [address] PCP - General Family Medicine 01/20/21 documented as of this encounter
[2024-10-29 12:17] VITALS: BP 102/61; PULSE 58; RESP 15; TEMP 36.5; O2SAT 98
[2024-10-29 12:46] VITALS: BP 102/61; PULSE 58; RESP 15; TEMP 36.5; O2SAT 98
== END 2024-10-29 12:48 | disposition home or self-care (01) ==
PROVIDERS: Physician Assistant Medical; Emergency Provider Emergency Medicine; PCP Nurse Practitioner Primary Care
DX: B34.9 Viral infection, unspecified (principal); R11.2 Nausea with vomiting, unspecified; M54.50 Low back pain, unspecified; R07.89 Other chest pain; R06.02 Shortness of breath; Z11.52 Encounter for screening for COVID-19; Z79.899 Other long term (current) drug therapy
CPT/HCPCS: 36415; 71046; 80053; 81001; 83735; 84484; 85025; 85610; 87502; 87635; 93005; 96374; 96375; 99284; J1885; J2405

== ENCOUNTER → 2024-10-29 09:57 | Outpatient (BNV) | payer MEDICAID, SELFPAY | PROVIDERS: PCP Nurse Practitioner Primary Care; Visit Provider Radiology Body Imaging | DX: R06.02 Shortness of breath (principal) | CPT/HCPCS: 71046 ==

== ENCOUNTER → 2024-10-29 09:58 | Outpatient (BNV) | payer MEDICAID, SELFPAY | PROVIDERS: Emergency Provider Emergency Medicine; PCP Nurse Practitioner Primary Care; Visit Provider Internal Medicine | DX: I45.10 Unspecified right bundle-branch block (principal) | CPT/HCPCS: 93010 ==